=== PATIENT | female | born 1975 | race Caucasian/White ===

== ENCOUNTER 2016-11-14 15:51 | Emergency (ER) | payer MEDICAID ==
--- NOTE | 2016-11-14 16:19 | ER Document Report ---
ED Medical Screen (RME) - General Stated Complaint: BACK AND SIDE PAIN Time seen by provider: 16:17 Mode of Arrival: Ambulatory Information source: Patient Notes: 40-year-old female complaining of constant right thoracic mid axillary line pain that radiates to the right lower thoracic back for 3 days, worse when she lays down on her left side and takes a deep breath, feels short of breath.. She has a cough. No fever. No history of PE. TRAVEL OUTSIDE OF THE [place] IN LAST 30 DAYS: No - Related Data Allergies/Adverse Reactions: No Known Allergies Allergy (Verified 11/14/16 16:21) Past Medical History Pulmonary Medical History: Reports: Hx Bronchitis, Hx Pneumonia Denies: Hx Asthma Neurological Medical History: Reports: Hx Migraine GI Medical History: Reports: Hx Gastroesophageal Reflux Disease Past Surgical History: Reports: Hx Gynecologic Surgery - tubal ligation, Hx Tubal Ligation - Immunizations Immunizations up to date: No Hx Diphtheria, Pertussis, Tetanus Vaccination: No
[2016-11-14 17:12] LABS: ABSOLUTE BASOPHILS # (AUTO) 0.1 10^3/uL (0.0-0.2); ABSOLUTE EOSINOPHILS # (AUTO) 0.3 10^3/uL (0.0-0.6); ABSOLUTE LYMPHOCYTES (AUTO) 3.7 10^3/uL (0.5-4.7); ABSOLUTE MONOCYTES (AUTO) 0.6 10^3/uL (0.1-1.4); BASOPHILS % (AUTO) 0.8 % (0-2); EOSINOPHILS % (AUTO) 2.3 % (0-6); HEMOGLOBIN 12.4 g/dL (12.0-15.5); HGB HCT DIFFERENCE -0.8; LYMPHOCYTES % (AUTO) 29.1 % (13-45); MEAN CORPUSCULAR HEMOGLOBIN 28.9 pg (27.0-33.4); MEAN CORPUSCULAR HGB CONC 32.6 g/dL (32.0-36.0); MEAN CORPUSCULAR VOLUME 89 fl (80-97); MONOCYTES % (AUTO) 4.9 % (3-13); RED BLOOD COUNT 4.29 10^6/uL (3.72-5.28); RED CELL DISTRIBUTION WIDTH 13.8 % (11.5-14.0); SEGMENTED NEUTROPHILS % (AUTO) 62.9 % (42-78); WHITE BLOOD COUNT 12.8 10^3/uL (4.0-10.5)
[2016-11-14 17:36] LABS: ALANINE AMINOTRANSFERASE 26 U/L (9-52); ALBUMIN 3.9 g/dL (3.5-5.0); ALKALINE PHOSPHATASE 118 U/L (38-126); ANION GAP 15 (5-19); ASPARTATE AMINO TRANSFERASE 23 U/L (14-36); BILIRUBIN,TOTAL 0.4 mg/dL (0.2-1.3); BLOOD UREA NITROGEN 10 mg/dL (7-20); CALCIUM 9.5 mg/dL (8.4-10.2); CARBON DIOXIDE 24 mmol/L (22-30); CHLORIDE 99 mmol/L (98-107); CREATININE RESULT 0.79 mg/dL (0.52-1.25); GLUCOSE 280 mg/dL (75-110); POTASSIUM 4.3 mmol/L (3.6-5.0); SODIUM 137.7 mmol/L (137-145); TOTAL PROTEIN 7.6 g/dL (6.3-8.2)
[2016-11-14] MEDS ORDERED: KETOROLAC TROMETHAMINE INJ/PF 30 MG/1 ML SDV IV ONE (18:28)
[2016-11-14] MEDS ORDERED: LIDOCAINE 5% (700 MG) TRANSDERMAL ADH..PATCH TP ONE (18:28)
--- NOTE | 2016-11-14 18:30 | ER Document Report ---
ED General - General Chief Complaint: Back Pain Stated Complaint: BACK AND SIDE PAIN Mode of Arrival: Ambulatory Notes: Patient is a 40-year-old female without significant past medical history who presents with 3 days of pleuritic right chest wall pain. Describes the pain as a constant sharp pain that is worsened by taking a deep breath. Nothing improves the pain. Denies a history of similar symptoms in the past. No history of DVT or pulmonary embolus. She does not use any supplemental estrogen. She does smoke. She denies any distinct chest pain, vomiting, or diaphoresis. No cough or sputum production. She has not had a fever. Denies any focal abdominal pain. She is not seen her primary care physician regarding today's concerns. TRAVEL OUTSIDE OF THE [place] IN LAST 30 DAYS: No - Related Data Allergies/Adverse Reactions: No Known Allergies Allergy (Verified 11/14/16 16:21) Past Medical History - General Information source: Patient - Social History Smoking Status: Current Every Day Smoker Frequency of alcohol use: Social Drug Abuse: None Lives with: Spouse/Significant other Family History: Arthritis, CVA, DM, Hyperlipidemia, Hypertension, Malignancy, Thyroid Disfunction Pulmonary Medical History: Reports: Hx Bronchitis, Hx Pneumonia Denies: Hx Asthma Neurological Medical History: Reports: Hx Migraine Renal/ Medical History: Denies: Hx Peritoneal Dialysis GI Medical History: Reports: Hx Gastroesophageal Reflux Disease Past Surgical History: Reports: Hx Gynecologic Surgery - tubal ligation, Hx Tubal Ligation - Immunizations Immunizations up to date: No Hx Diphtheria, Pertussis, Tetanus Vaccination: No Review of Systems - Review of Systems Notes: Constitutional: Negative for fever. HENT: Negative for sore throat. Eyes: Negative for visual changes. Cardiovascular: Positive for right pleuritic pain Respiratory: Positive for shortness of breath. Gastrointestinal: Negative for abdominal pain, vomiting or diarrhea. Genitourinary: Negative for dysuria. Musculoskeletal: Negative for back pain. Skin: Negative for rash. Neurological: Negative for headaches, weakness or numbness. 10 point ROS negative except as marked above and in HPI. Physical Exam - Vital signs Vitals: Temp Pulse Resp BP Pulse Ox 98.3 F 77 18 133/85 H 98 11/14/16 21:52 11/14/16 21:52 11/14/16 21:52 11/14/16 21:52 11/14/16 21:52 Interpretation: Normal Notes: PHYSICAL EXAMINATION: GENERAL: Well-appearing, well-nourished and in no acute distress. HEAD: Atraumatic, normocephalic. EYES: Pupils equal round and reactive to light, extraocular movements intact, sclera anicteric, conjunctiva are normal. ENT: nares patent, oropharynx clear without exudates. Moist mucous membranes. NECK: Normal range of motion, supple without lymphadenopathy LUNGS: Breath sounds clear to auscultation bilaterally and equal. No wheezes rales or rhonchi. HEART: Regular rate and rhythm without murmurs ABDOMEN: Soft, nontender, normoactive bowel sounds. No guarding, no rebound. No masses appreciated. EXTREMITIES: Normal range of motion, no pitting or edema. No cyanosis. NEUROLOGICAL: No focal neurological deficits. Moves all extremities spontaneously and on command. PSYCH: Normal mood, normal affect. SKIN: Warm, Dry, normal turgor, no rashes or lesions noted. Course - Re-evaluation Re-evalutation: 11/14/16 18:28 Patient presents with RUQ and R costophrenic angle pain for the past 3 days. Patient does give a history consistent with pleuritic pain. She has no immediate risk factors for a pulmonary embolus and although she is PERC criteria negative, my clinical suspicion is higher than 15% pretest probability so I will proceed with a d-dimer assay to further exclude this diagnosis. Likewise, patient does have some focal right upper quadrant tenderness without rebound or guarding. Will evaluate with a right upper quadrant ultrasound for acute cholecystitis or symptomatic cholelithiasis. Alternative benign diagnoses include possible pleurodynia. Chest x-ray is negative for pneumonia or pneumothorax. I do not suspect an acute cardiac etiology based on history. 11/14/16 21:23 Right upper quadrant ultrasound shows cholelithiasis without evidence of acute cholecystitis. D-dimer is negative. Patient's pain is improved at this time. Vitals remained within normal limits.At this time will discharge with return precautions and follow-up recommendations. Verbal discharge instructions given a the bedside and opportunity for questions given. Medication warnings reviewed. Patient is in agreement with this plan and has verbalized understanding of return precautions and the need for primary care follow-up in the next 24-72 hours. - Vital Signs Vital signs: Temp Pulse Resp BP Pulse Ox 98.3 F 77 18 133/85 H 98 11/14/16 21:52 11/14/16 21:52 11/14/16 21:52 11/14/16 21:52 11/14/16 21:52 - Laboratory Result Diagrams: 11/14/16 16:55 11/14/16 16:55 Laboratory results interpreted by me: 11/14/16 11/14/16 16:55 16:55 WBC 12.8 H Glucose 280 H - Diagnostic Test Radiology reviewed: Image reviewed, Reports reviewed Radiology results interpreted by me: 11/15/16 03:17 Chest x-ray: No acute infiltrate Discharge - Discharge Clinical Impression: Pleurodynia Cholelithiasis Qualifiers: Cholelithiasis location: gallbladder Cholecystitis presence: without cholecystitis Biliary obstruction: without biliary obstruction Qualified Code(s) : K80.20 - Calculus of gallbladder without cholecystitis without obstruction Condition: Good Disposition: HOME, SELF-CARE Additional Instructions: Your labs do not show any evidence of blood clot in your lung. Your ultrasound shows stones in the gallbladder but no evidence of they are inflamed are causing your pain. The pain is likely related to inflammation of the lining that surrounds your lungs. Your chest xray did not show any evidence of a pneumonia. You were given a dose of steroids here to help calm the inflammation in this area. Please follow-up with your primary care physician at your earliest ability. Return if you develop increased shortness of breath, worsening pain, begin coughing blood, pass out, or have any other symptoms that are concerning to you. Referrals: ROBER BOSS MD [Primary Care Provider] - Follow up in 3-5 days
[2016-11-14] MEDS ORDERED: DEXAMETHASONE SOD PHOS INJ 10 MG/1 ML VIAL IV ONE (21:21)
[2016-11-14 21:56] VITALS: BP 133/85
== END 2016-11-14 22:13 | disposition home or self-care (01) ==
LOC: ER 15:51
DX: R07.81 Pleurodynia (principal); K80.20 Calculus of gallbladder without cholecystitis without obstruction; M54.9 Dorsalgia, unspecified; F17.200 Nicotine dependence, unspecified, uncomplicated; Z98.51 Tubal ligation status
CPT/HCPCS: 99284; 96374; 96375; 36415; 85025; 80053; 85379; 71020; 76705; J1885; J3490; J1100

== ENCOUNTER 2016-11-18 08:03 | Emergency (ER) | payer MEDICAID ==
[2016-11-18 09:56] LABS: ABSOLUTE BASOPHILS # (AUTO) 0.2 10^3/uL (0.0-0.2); ABSOLUTE EOSINOPHILS # (AUTO) 0.3 10^3/uL (0.0-0.6); ABSOLUTE MONOCYTES (AUTO) 0.6 10^3/uL (0.1-1.4); ABSOLUTE NEUT (AUTO) 8.6 10^3/uL (1.7-8.2); BASOPHILS % (AUTO) 1.3 % (0-2); EOSINOPHILS % (AUTO) 2.6 % (0-6); HEMATOCRIT 40.6 % (36.0-47.0); HEMOGLOBIN 13.1 g/dL (12.0-15.5); HGB HCT DIFFERENCE -1.3; MEAN CORPUSCULAR HEMOGLOBIN 28.2 pg (27.0-33.4); MEAN CORPUSCULAR HGB CONC 32.2 g/dL (32.0-36.0); MEAN CORPUSCULAR VOLUME 88 fl (80-97); MONOCYTES % (AUTO) 4.4 % (3-13); RED BLOOD COUNT 4.63 10^6/uL (3.72-5.28); RED CELL DISTRIBUTION WIDTH 14.2 % (11.5-14.0); SEGMENTED NEUTROPHILS % (AUTO) 62.7 % (42-78); WHITE BLOOD COUNT 13.6 10^3/uL (4.0-10.5)
[2016-11-18 09:58] LABS: APPEARANCE,URINE CLEAR; BILIRUBIN,URINE NEGATIVE (NEGATIVE); GLUCOSE, URINE NEGATIVE (NEGATIVE); KETONES,URINE NEGATIVE (NEGATIVE); LEUKOCYTE ESTERASE,URINE NEGATIVE (NEGATIVE); NITRITE,URINE NEGATIVE (NEGATIVE); PROTEIN,URINE NEGATIVE (NEGATIVE); URINE SPECIFIC GRAVITY 1.001; UROBILINOGEN,URINE NEGATIVE mg/dL (<2.0)
--- NOTE | 2016-11-18 11:05 | ER Document Report ---
[id number] Mode of Arrival: Ambulatory Information source: Patient Notes: 40-year-old female presents with complaints of right upper quadrant abdominal pain patient denies any fevers or chills admits to nausea patient was seen here previously noted to have gallstone, notes pain worsens after eating. TRAVEL OUTSIDE OF THE [place] IN LAST 30 DAYS: No - HPI Onset: Just prior to arrival Onset/Duration: Sudden Quality of pain: Sharp Severity: Mild Pain Level: 1 Associated symptoms: Nausea Exacerbated by: Denies Relieved by: Denies Similar symptoms previously: Yes Recently seen / treated by doctor: Yes - Related Data Allergies/Adverse Reactions: No Known Allergies Allergy (Verified 11/18/16 08:07) Past Medical History - Social History Smoking Status: Current Every Day Smoker Cigarette use (# per day): No Chew tobacco use (# tins/day): No Smoking Education Provided: No Frequency of alcohol use: None Drug Abuse: None Family History: Arthritis, CVA, DM, Hyperlipidemia, Hypertension, Malignancy, Thyroid Disfunction Patient has suicidal ideation: No Patient has homicidal ideation: No Pulmonary Medical History: Reports: Hx Bronchitis, Hx Pneumonia Denies: Hx Asthma Neurological Medical History: Reports: Hx Migraine Renal/ Medical History: Denies: Hx Peritoneal Dialysis GI Medical History: Reports: Hx Gastroesophageal Reflux Disease Past Surgical History: Reports: Hx Gynecologic Surgery - tubal ligation, Hx Tubal Ligation - Immunizations Immunizations up to date: No Hx Diphtheria, Pertussis, Tetanus Vaccination: No Review of Systems - Review of Systems Notes: REVIEW OF SYSTEMS: CONSTITUTIONAL : Denies fever, chills, or sweats. Denies recent illness. EENT: Denies eye, ear, throat, or mouth pain or symptoms. Denies nasal or sinus congestion or discharge. Denies throat, tongue, or mouth swelling or difficulty swallowing. CARDIOVASCULAR: Denies chest pain. Denies palpitations or racing or irregular heart beat. Denies ankle edema. RESPIRATORY: Denies cough, cold, or chest congestion. Denies shortness of breath, difficulty breathing, or wheezing. GASTROINTESTINAL: Admits to abdominal pain nausea GENITOURINARY: Denies difficulty urinating, painful urination, burning, frequency, blood in urine, or discharge. FEMALE GENITOURINARY: Denies vaginal bleeding, heavy or abnormal periods, irregular periods. Denies vaginal discharge or odor. MUSCULOSKELETAL: Denies back or neck pain or stiffness. Denies joint pain or swelling. SKIN: Denies rash, lesions or sores. HEMATOLOGIC : Denies easy bruising or bleeding. LYMPHATIC: Denies swollen, enlarged glands. NEUROLOGICAL: Denies confusion or altered mental status. Denies passing out or loss of consciousness. Denies dizziness or lightheadedness. Denies headache. Denies weakness or paralysis or loss of use of either side. Denies problems with gait or speech. Denies sensory loss, numbness, or tingling. Denies seizures. PSYCHIATRIC: Denies anxiety or stress. Denies depression, suicidal ideation, or homicidal ideation. ALL OTHER SYSTEMS REVIEWED AND NEGATIVE. Dictation was performed using [employer] voice recognition software PHYSICAL EXAMINATION: GENERAL: Well-appearing, well-nourished and in no acute distress. HEAD: Atraumatic, normocephalic. EYES: Pupils equal round and reactive to light, extraocular movements intact, conjunctiva are normal. ENT: Nares patent, oropharynx clear without exudates. Moist mucous membranes. NECK: Normal range of motion, supple without lymphadenopathy LUNGS: Breath sounds clear to auscultation bilaterally and equal. No wheezes rales or rhonchi. HEART: Regular rate and rhythm without murmurs ABDOMEN: Soft, minimally tender in the right upper quadrant no rebound or guarding no positive Herndon sign Female : deferred Musculoskeletal: Normal range of motion, no pitting or edema. No cyanosis. NEUROLOGICAL: Cranial nerves grossly intact. Normal speech, normal gait. Normal sensory, motor exams PSYCH: Normal mood, normal affect. SKIN: Warm, Dry, normal turgor, no rashes or lesions noted. Physical Exam - Vital signs Vitals: Temp Pulse Resp BP Pulse Ox 97.5 F 94 18 144/94 H 100 11/18/16 08:08 11/18/16 08:08 11/18/16 08:08 11/18/16 08:08 11/18/16 08:08 Course - Re-evaluation Re-evalutation: 11/18/16 17:36 Patient was sent for an ultrasound, I did speak with the surgeon regarding this patient as well. Given the ultrasound noted no acute cholecystitis there is a mild white count elevation I did speak to the patient in regards to outpatient versus inpatient surgery, they wish to go home and try diet changes initially After performing a Medical Screening Examination, I estimate there is LOW risk for ACUTE APPENDICITIS, BOWEL OBSTRUCTION, ACUTE CHOLECYSTITIS, PERFORATED DIVERTICULITIS, INCARCERATED HERNIA, PANCREATITIS, PELVIC INFLAMMATORY DISEASE, PERFORATED ULCER, ECTOPIC , or TUBO-OVARIAN ABSCESS, thus I consider the discharge disposition reasonable. Also, there is no evidence or peritonitis , sepsis, or toxicity. The patient and I have discussed the diagnosis and risks , and we agree with discharging home with close follow-up with the understanding that symptoms and presentations can change. We also discussed returning to the Emergency Department immediately if new or worsening symptoms occur. We have discussed the symptoms which are most concerning (e.g., bloody stool, fever, changing or worsening pain, vomiting) that necessitate immediate return. - Vital Signs Vital signs: Temp Pulse Resp BP Pulse Ox 97.4 F 90 16 140/90 H 100 11/18/16 12:46 11/18/16 12:46 11/18/16 12:46 11/18/16 12:46 11/18/16 12:46 - Laboratory Result Diagrams: 11/18/16 09:35 11/18/16 11:15 Laboratory results interpreted by me: 11/18/16 11/18/16 09:35 11:15 WBC 13.6 H RDW 14.2 H Absolute Neutrophils 8.6 H Glucose 140 H - Diagnostic Test Radiology reviewed: Image reviewed, Reports reviewed Discharge - Discharge Clinical Impression: Cholelithiasis Qualifiers: Cholelithiasis location: gallbladder Cholecystitis presence: without cholecystitis Biliary obstruction: without biliary obstruction Qualified Code(s) : K80.20 - Calculus of gallbladder without cholecystitis without obstruction Abdominal pain Qualifiers: Abdominal location: right upper quadrant Qualified Code(s): R10.11 - Right upper quadrant pain Condition: Stable Disposition: HOME, SELF-CARE Instructions: Abdominal Pain ([facility]), Gallbladder Disease ([facility]) Prescriptions: Ondansetron HCl [Zofran 8 mg Tablet] 8 mg PO Q8HP PRN #30 tablet PRN Reason: Hydrocodone/Acetaminophen [Grapevine 5-325 mg Tablet] 1 tab PO Q6 #10 tablet Referrals: ESTEBAN OSBORNE MD [ACTIVE STAFF] - Follow up as needed
[2016-11-18 11:45] LABS: ALANINE AMINOTRANSFERASE 26 U/L (9-52); ALBUMIN 3.8 g/dL (3.5-5.0); ALKALINE PHOSPHATASE 102 U/L (38-126); ANION GAP 9 (5-19); ASPARTATE AMINO TRANSFERASE 20 U/L (14-36); BILIRUBIN,TOTAL 0.6 mg/dL (0.2-1.3); BLOOD UREA NITROGEN 10 mg/dL (7-20); CALCIUM 9.5 mg/dL (8.4-10.2); CARBON DIOXIDE 28 mmol/L (22-30); CHLORIDE 101 mmol/L (98-107); GLUCOSE 140 mg/dL (75-110); LIPASE 36.1 U/L (23-300); POTASSIUM 4.6 mmol/L (3.6-5.0); SODIUM 138.3 mmol/L (137-145); TOTAL PROTEIN 7.3 g/dL (6.3-8.2)
[2016-11-18 12:48] VITALS: BP 140/90
== END 2016-11-18 12:48 | disposition home or self-care (01) ==
LOC: ER 08:03
DX: K80.20 Calculus of gallbladder without cholecystitis without obstruction (principal); R10.11 Right upper quadrant pain; R11.0 Nausea; D72.829 Elevated white blood cell count, unspecified; F17.200 Nicotine dependence, unspecified, uncomplicated; Z87.19 Personal history of other diseases of the digestive system; Z98.51 Tubal ligation status
CPT/HCPCS: 36415; 76705; 80053; 81001; 81025; 83690; 85025; 99284

== ENCOUNTER 2017-01-06 05:34 | Day surgery (SDC) | payer MEDICAID ==
[2016-12-30 10:35] LABS: HEMATOCRIT 37.4 % (36.0-47.0); HEMOGLOBIN 12.4 g/dL (12.0-15.5); HGB HCT DIFFERENCE -0.2; MEAN CORPUSCULAR HEMOGLOBIN 28.6 pg (27.0-33.4); MEAN CORPUSCULAR HGB CONC 33.2 g/dL (32.0-36.0); MEAN CORPUSCULAR VOLUME 86 fl (80-97); RED BLOOD COUNT 4.35 10^6/uL (3.72-5.28); RED CELL DISTRIBUTION WIDTH 14.3 % (11.5-14.0); WHITE BLOOD COUNT 12.1 10^3/uL (4.0-10.5)
[2016-12-30 11:03] LABS: ALANINE AMINOTRANSFERASE 31 U/L (9-52); ALBUMIN 4.1 g/dL (3.5-5.0); ALKALINE PHOSPHATASE 118 U/L (38-126); ANION GAP 14 (5-19); ASPARTATE AMINO TRANSFERASE 20 U/L (14-36); BILIRUBIN,TOTAL 0.4 mg/dL (0.2-1.3); BLOOD UREA NITROGEN 8 mg/dL (7-20); CALCIUM 9.5 mg/dL (8.4-10.2); CARBON DIOXIDE 25 mmol/L (22-30); CHLORIDE 98 mmol/L (98-107); GLUCOSE 146 mg/dL (75-110); POTASSIUM 4.7 mmol/L (3.6-5.0); TOTAL PROTEIN 7.6 g/dL (6.3-8.2)
[2016-12-30 11:05] LABS: AMYLASE < 30 U/L (30-110)
[~2017-01-06 05:34] MED LIST: ACETAMINOPHEN 325 MG TABLET PO PRN; CEFAZOLIN 1 GM/D5W RTU 1 GM/50 ML RTUPB IV PRN; LIDOCAINE 0.5% INJ-PF (5 MG/ML) 50 ML SDV INJ PRN; RINGERS SOLUTION,LACTATED 1,000 ML IV PRN
[2017-01-06] MEDS ORDERED: ALBUTEROL SULFATE 0.083% NEB 2.5 MG/3 ML AMPUL NEB ONE (06:17)
[2017-01-06] MEDS ORDERED: BUPIVACAINE HCL 0.25 % INJ/PF (2.5 MG/1 ML) 30 ML VIAL ONE (06:32)
[2017-01-06] MEDS ORDERED: FAMOTIDINE INJ/PF 20 MG/2 ML SDV IV ONE (07:06)
[2017-01-06] MEDS ORDERED: SCOPOLAMINE HYDROBROMIDE 1.5 MG PATCH.TD72 ONE (07:09)
[2017-01-06] MEDS ORDERED: FENTANYL CITRATE INJ/PF 100 MCG/2 ML AMPUL ONE ×2 (07:12)
[2017-01-06] MEDS ORDERED: LIDOCAINE 2% INJ-PF (20 MG/ML) 10 ML AMPUL ONE (07:12)
[2017-01-06] MEDS ORDERED: MIDAZOLAM 2 MG/2 ML INJ ONE (07:13)
[2017-01-06] MEDS ORDERED: PROPOFOL INJ 200 MG/20 ML VIAL IV ONE (07:13)
[2017-01-06] MEDS ORDERED: MORPHINE SULFATE 10 MG/ML INJ ONE (07:13)
[2017-01-06] MEDS ORDERED: FENTANYL CITRATE INJ/PF 100 MCG/2 ML AMPUL IV PRN (08:10)
[2017-01-06] MEDS ORDERED: MORPHINE SULFATE 10 MG/ML INJ IV PRN ×2 (08:10→09:04)
[2017-01-06] MEDS ORDERED: ONDANSETRON HCL INJ/PF 4 MG/2 ML SDV IV PRN (09:04)
[2017-01-06] MEDS ORDERED: OXYCODONE-ACETAMINOPHEN 5-325 MG TABLET PO PRN (09:04)
--- NOTE | 2017-01-06 09:04 | Operative Report ---
Operative Report DATE OF SURGERY: 01/06/17 PREOPERATIVE DIAGNOSIS: Symptomatic cholelithiasis cholecystitis. POSTOPERATIVE DIAGNOSIS: Same OPERATION: 1. Laparoscopic cholecystectomy SURGEON: ESTEBAN NEELY CARE GIVER: PATRICIO BANSAL ANESTHESIA: GA TISSUE REMOVED OR ALTERED: 1 gallbladder with contents COMPLICATIONS: None ESTIMATED BLOOD LOSS: scant INTRAOPERATIVE FINDINGS: See below PROCEDURE: After obtaining informed consent, the patient was taken to the operating room. General Anesthesia was induced; the arms were extended, and the abdomen was exposed, and prepped and draped in a sterile fashion. Instrumentation was set up for laparoscopic cholecystectomy. Surgical plan and surgical timeout were conducted. A vertical incision was made above the umbilicus, and a verres needle was inserted uneventfully into the peritoneal cavity. Pneumoperitoneum was established. The verres needle was removed and a 5 mm trocar was inserted and a 5 mm flexible laparoscope was inserted. Visualization of the peritoneal cavity confirmed safe uneventful entry. Under direct visualization 3 additional 5 mm ports were established, one in the subxiphoid position and second in the subcostal position. Visualization of the hepatobiliary was very difficult due to the patient's morbid obesity. Therefore placed a fourth retracting port for total of 5 total warts. This additional port allowed us to introduce fan retractor to hold the gastroduodenal tissue dorsally. The gallbladder down from the fundus using electrocautery. This was performed in a circumferential fashion with excellent visualization of the liver-gallbladder plane. Eventually we came down to the dominant cystic artery which was slightly more lateral than local. It was clipped 2 times proximally 2 times distally and divided with electrocautery DISSECTOR. We then spent a fair amount of time dissecting the surrounding fat in a circumferential fashion away from the infundibulum of the gallbladder. This was very challenging despite the use of additional retractor. Eventually we got down to what felt was a safe neck of the gallbladder. Photos were taken. 4-year-old PDS Endoloops were placed on the gallbladder neck one proximally and one distally. Proximal loop secured the neck at the level of the cystic duct. Again this area was not meticulously dissected out because of the excessive amount of fatty tissue, and the short nature of the anatomic rupture must specifically the cystic duct. Once the loop was secured, the gallbladder was amputated at its neck. Graspers were repositioned and the gallbladder was removed uneventfully from the abdominal cavity through the super umbilical port site incision. The specimen was examined, then passed off to pathology for permanent analysis. We returned to the peritoneal cavity check for bleeding, and evidence of bile leak, and there was none. We Confirmed satisfactory placement of clips on cystic duct and cystic artery were secured . At this point we felt the operation was complete. The subcutaneous tissue was then anesthetized with quarter percent Marcaine Sponge and needle counts are correct. All ports removed under direct visualization pneumoperitoneum evacuated, and 5 mm port wounds closed with 3-0 Vicryl suture, benzoin and Steri-Strips. FAscial defect closed with was no spillage of stones.0 vicryl. The patient was extubated, and taken to the recovery room in stable condition. The physician captain assistant, Ms. Bansal, provided assistance during this case by: Assisting and port insertion, retracting tissue, instillation of local anesthesia and closure of skin incisions.
--- NOTE | 2017-01-06 09:08 | PDOC DISCHARGE SUMMARY ---
Discharge Summary (SDC) - Discharge Final Diagnosis: Symptomatic cholelithiasis cholecystitis Date of Surgery: 01/06/17 Discharge Date: 01/06/17 Condition: Good Treatment or Instructions: [facility] [address], [place] [address] Discharge Instructions: Laparoscopic Surgery 1. General Information: a. DO NOT DRIVE a car or operate dangerous machinery for 3-4 days or while taking narcotic pain pills. b. DO NOT consume alcohol, tranquilizers, sleeping medications or any non- prescribed medications for 24 hours unless approved by your doctor or as long as taking narcotic prescription medications. c. DO NOT make important decisions or sign any important papers for the first 24 hours after surgery. d. When discharged home the same day of surgery have a responsible person with you for the first night. 2. Activity Restrictions: 2 weeks. a. NO heavy lifting, straining abdominal muscles, bending over a lot, yard work, house work, or sports for [address] for 3-4 days or while taking percocet. c. It is fine to go for walks, up and down steps, ride in a car. d. Elevate your head when sleeping/resting. 3. Treatment: a. You may shower 24 hours after surgery, no baths or swimming for 2 weeks. Remove band-aids or dressings before shower but leave paper strips (steri-strips ) on the skin to fall off on their own. If still on at postoperative visit they will be removed then. b. Drainage of fluid or blood is not unusual from an incision. If occurs, you can clean with peroxide and cotton ball daily and cover with dry gauze until the wound seals. c. If a lot of bleeding occurs, you can hold pressure with a gauze or cloth over the site for 10 minutes and it will usually stop. If bleeding continues you will need to call for possible evaluation in office or emergency room. 4. Medications: a. Percocet may be taken for pain as needed, one or two tablets every 4-6 hours. Stop the narcotic when able since you cannot take it and drive, and they cause constipation. You may switch to plain Tylenol, Advil or Aleve as you transition from the narcotic. Many adults find good pain relief with Advil 600- 800 mg three times a day with meals. This can cause indigestion, ulcers, and kidney problems with long-term use. b. You should resume all normal medications unless a change is specified by your doctors. c. Begin with clear liquids and may progress to your normal diet if not nauseated. No high fat, high protein foods the day of surgery. Normal diet 6. The following may occur after laparoscopic surgery: a. Shoulder or upper back ache from retained gas that should resolve in 1-2 days b. Soreness and bruising at incision sites will resolve with time. c. Scrotal swelling (labia in women) and bruising is often seen after hernia surgery. d. Sore throat e. Fatigue may last days to weeks. f. Difficulty urinating may occur and may need to come into emergency room for urinary catheter placement. 7. Notify Physician If: a. Worsening or pain not improved with pain medication b. Persistent nausea and vomiting c. Fever above 101 d. Persistent bleeding or swelling at operative site e. Unable to urinate and uncomfortable bladder 6-8 hours after surgery 8..Follow Up Care: a. Schedule a follow up appointment with your doctor for 2 weeks. In the event of any postoperative problems or questions or you may call the office during business hours or the On-Call physician evenings and weekends at [facility]. [facility] I understand the instructions for my postoperative care as described above and a copy has been given to me. Patient/Significant Other Witness Date Prescriptions: Oxycodone HCl/Acetaminophen [Percocet 5-325 mg Tablet] 1 tab PO ASDIR PRN #15 tab PRN Reason: Discharge Diet: As Tolerated Discharge Activity: Activity As Tolerated Home Care Assistance: None Needed Report the Following to Your Physician Immediately: Shortness of Breath, Increase in Pain, Fever over 101 Degrees
[2017-01-06] MEDS ORDERED: SUCCINYLCHOLINE CHLORIDE INJ 200 MG/10 ML VIAL ONE (11:03)
[2017-01-06] MEDS ORDERED: ONDANSETRON HCL INJ/PF 4 MG/2 ML SDV ONE (11:03)
[2017-01-06] MEDS ORDERED: DEXAMETHASONE SOD PHOSPHATE INJ 4 MG/1 ML VIAL ONE (11:03)
[2017-01-06] MEDS ORDERED: ROCURONIUM BROMIDE INJ 50 MG/5 ML VIAL IV ONE (11:03)
[2017-01-06] MEDS ORDERED: NEOSTIGMINE METHYLSULFATE 10 MG/10 ML VIAL ONE (11:03)
[2017-01-06] MEDS ORDERED: GLYCOPYRROLATE INJ 0.4 MG/2 ML VIAL ONE (11:03)
[2017-01-06 13:19] VITALS: BP 131/70
== END 2017-01-06 11:40 | disposition home or self-care (01) ==
LOC: OROUT 05:34
PROVIDERS: ATTEND Surgery
PROC: 0FT44ZZ Resection of Gallbladder, Percutaneous Endoscopic Approach (ICD-10-PCS; principal; 2017-01-06 07:30)
DX: K80.12 Calculus of gallbladder with acute and chronic cholecystitis without obstruction (principal); F17.210 Nicotine dependence, cigarettes, uncomplicated; E66.9 Obesity, unspecified; Z88.8 Allergy status to other drugs, medicaments and biological substances; Z68.42 Body mass index [BMI] 45.0-49.9, adult
CPT/HCPCS: 36415; 82150; 85027; 80076; 80048; 88304 ×2; 94640; 47562; J2250; J0690; J3490 ×4; J1100; J3010; J2270; J0330; J2405; S0020; J2704; S0028; 790

== ENCOUNTER 2017-09-23 15:40 | Emergency (ER) | payer SELFPAY ==
[2017-09-23] MEDS ORDERED: ACETAMINOPHEN 325 MG TABLET PO ONE (16:25)
[2017-09-23] MEDS ORDERED: IPRATROPIUM/ALBUTEROL 0.5-2.5 MG/3 ML AMPUL NEB ONE (16:25)
[2017-09-23] MEDS ORDERED: PREDNISONE 20 MG TABLET PO ONE (16:25)
--- NOTE | 2017-09-23 16:36 | ER Document Report ---
HPI - HPI Patient complains to provider of: cough Onset: Other - 1.5 wks Onset/Duration: Persistent Quality of pain: Achy Pain Level: 2 Context: Patient presents with productive cough for the past 10 days. Patient reports headache only with coughing. Patient denies any nausea, vomiting or diarrhea. Patient does complain of sore throat. Associated Symptoms: Nonproductive cough, Fever, Headache Exacerbated by: Denies Relieved by: Denies Similar symptoms previously: Yes Recently seen / treated by doctor: No - ROS ROS below otherwise negative: Yes Systems Reviewed and Negative: Yes All other systems reviewed and negative - CONSTITUTIONAL Constitutional: REPORTS: Fever - EENT EENT: REPORTS: Sore Throat - CARDIOVASCULAR Cardiovascular: DENIES: Chest pain - RESPIRATORY Respiratory: REPORTS: Coughing - GASTROINTESTINAL Gastrointestinal: DENIES: Patient vomiting - REPRODUCTIVE Reproductive: DENIES: : - DERM Skin Color: Normal Skin Problems: None Past Medical History - General Information source: Patient - Social History Smoking Status: Current Every Day Smoker Frequency of alcohol use: None Drug Abuse: None Occupation: none Family History: Arthritis, CVA, DM, Hyperlipidemia, Hypertension, Malignancy, Thyroid Disfunction - Past Medical History Cardiac Medical History: Denies: Hx Coronary Artery Disease, Hx Heart Attack, Hx Hypertension Pulmonary Medical History: Reports: Hx Bronchitis, Hx Pneumonia Denies: Hx Asthma, Hx COPD Neurological Medical History: Reports: Hx Migraine. Denies: Hx Cerebrovascular Accident, Hx Seizures Renal/ Medical History: Denies: Hx Peritoneal Dialysis GI Medical History: Reports: Hx Gastroesophageal Reflux Disease Musculoskeltal Medical History: Denies Hx Arthritis Past Surgical History: Reports: Hx Gynecologic Surgery - tubal ligation, Hx Tubal Ligation - Immunizations Immunizations up to date: No Hx Diphtheria, Pertussis, Tetanus Vaccination: Yes Vertical Provider Document - CONSTITUTIONAL Agree With Documented VS: Yes Exam Limitations: No Limitations General Appearance: WD/WN, No Apparent Distress - INFECTION CONTROL TRAVEL OUTSIDE OF THE [place] IN LAST 30 DAYS: No - HEENT HEENT: Atraumatic, Normocephalic, Pharyngeal Tenderness. negative: Pharyngeal Exudate, Pharyngeal Erythema, Tympanic Membrane Red, Tympanic Membrane Bulging Notes: clear rhinorrhea - NECK Neck: Normal Inspection, Supple. negative: Lymphadenopathy-Left, Lymphadenopathy-Right - RESPIRATORY Respiratory: No Respiratory Distress, Chest Non-Tender, Wheezing O2 Sat by Pulse Oximetry: 99 - CARDIOVASCULAR Cardiovascular: Regular Rate, Regular Rhythm - BACK Back: Normal Inspection - MUSCULOSKELETAL/EXTREMETIES Musculoskeletal/Extremeties: KENNETH MONTELONGO - NEURO Level of Consciousness: Awake, Alert, Appropriate - DERM Integumentary: Warm, Dry, No Rash Course - Re-evaluation Re-evalutation: 09/23/17 The patient has been informed that they may have pre-hypertension or hypertension based on a blood pressure reading in the emergency department. I recommend that patient call the primary care provider listed on their discharge instructions or a physician of their choice by this week to arrange follow-up for further evaluation of possible pre-hypertension or hypertension. Respirations unlabored, no concern for PE or pneumonia at this time. Patient denies any history of asthma. Patient encouraged to stop smoking. - Vital Signs Vital signs: Temp Pulse Resp BP Pulse Ox 98.4 F 80 20 146/85 H 99 09/23/17 15:45 09/23/17 15:45 09/23/17 15:45 09/23/17 15:45 09/23/17 15:45 Discharge - Discharge Clinical Impression: Elevated blood pressure reading, Bronchospasm Upper respiratory infection Qualifiers: URI type: unspecified URI Qualified Code(s): J06.9 - Acute upper respiratory infection, unspecified Condition: Stable Disposition: HOME, SELF-CARE Additional Instructions: Return immediately for any new or worsening symptoms Followup with your primary care provider, call tomorrow to make a followup appointment UPPER RESPIRATORY ILLNESS: You have a viral infection of the respiratory passages -- a "cold." This common infection causes nasal congestion, drainage, and often sore throat and cough. It is highly contagious. The disease usually lasts about 10 to 14 days. There is no "cure" for the viral infection -- it must run its course. If there is a complication, such as bacterial infection in the nose, sinuses, middle ear, or bronchial tubes, antibiotics may be required. The antibiotics won't affect the virus. Drink plenty of fluids. A humidifier may help. An expectorant medication or decongestant may make you more comfortable. Use acetaminophen or ibuprofen for fever or aches. See the doctor if fever persists over two days, if there is any significant worsening of your symptoms, or if you simply fail to improve as expected. BRONCHOSPASM: You have tightness in the bronchial tubes, called bronchospasm. This often occurs with bronchial infections. Allergies, inhaled chemicals, and polluted or cold air can also provoke bronchospasm. It's more likely in patients with asthma in the family. Emergency treatment of bronchospasm may include adrenaline shots or bronchodilator aerosol. You may feel lightheaded and have a rapid pulse for an hour or two. Rest and get plenty of fluids. At home, we'll treat you with a bronchodilator inhaler. Antibiotics and corticosteroids may be required for some patients. Until you recover, avoid chemical fumes, dusts, pollens, and exercising in very cold or dry air. If you smoke, stop now!! If you develop a fever, increased wheezing, chest pain, or severe shortness of breath, you should contact the doctor immediately. INHALED BRONCHODILATORS: You have received a treatment of and/or prescription for an inhaled bronchodilator -- a medication which stimulates the airways in the lung to dilate. This improves the flow of air in asthma, bronchitis, and emphysema. These medicines have some similarity to adrenaline, and can cause similar side effects: shakiness, racing heart, and a sense of nervousness. These side effects decrease with time. Contact your doctor if these side effects are severe. Do not over-use the medicine. Too-frequent use of the inhaler may make it ineffective. Call your doctor if the inhaler is not controlling your symptoms at the prescribed doses. STEROID MEDICATION: You have been given an injection of or oral medicine of the cortisone/ steroid class. This medication is used to control inflammation or allergy. Shantanu t is usually only given for a short period of time, until the acute process subsides. There are usually no side effects from short-term use of cortisone-like medications. Some persons feel an increased sense of well-being and are not sleepy at bedtime. Long-term use of cortisone medications is best avoided, unless required for a severe condition. If your condition does not remit, or relapses after the course of corticosteroid medication, you should consult your physician. USE OF ACETAMINOPHEN (Tylenol): Acetaminophen may be taken for pain relief or fever control. It's much safer than aspirin, offering a wider range of "safe" dosages. It is safe during . Some brand names are Tylenol, Panadol, Datril, Anacin 3, Tempra, and Liquiprin. Acetaminophen can be repeated every four hours. The following are maximum recommended dosages: >89 pounds or adults 650 mg to 900 mg Acetaminophen can be repeated every four hours. Maximum dose not to exceed 4000 mg a day. SMOKING: If you smoke, you should stop smoking. The tar and chemicals in cigarette smoke are harmful. Smoking has been shown to cause: emphysema chronic bronchitis lung cancer mouth and throat cancer stomach and pancreas cancer premature aging defects In addition, smoking increases ear and lung infections in children of smokers. FOLLOW-UP CARE: If you have been referred to a physician for follow-up care, call the physician s office for an appointment as you were instructed or within the next two days. If you experience worsening or a significant change in your symptoms, notify the physician immediately or return to the Emergency Department at any time for re-evaluation. Prescriptions: Albuterol Sulfate [Ventolin Hfa] 2 puff IH Q4HP PRN #17 gm PRN Reason: Benzonatate [Tessalon Perle 100 mg Capsule] 100 mg PO Q8HP PRN #20 cap PRN Reason: Prednisone [Deltasone 10 mg Tablet] 10 mg PO ASDIR PRN #21 tablet PRN Reason: Referrals: [facility] [Provider Group] - Follow up as needed
[2017-09-23 18:09] VITALS: BP 140/87
== END 2017-09-23 18:05 | disposition home or self-care (01) ==
LOC: ER 15:40
DX: J06.9 Acute upper respiratory infection, unspecified (principal); J98.01 Acute bronchospasm; R03.0 Elevated blood-pressure reading, without diagnosis of hypertension; R05 Cough; R51 Headache; J02.9 Acute pharyngitis, unspecified; F17.200 Nicotine dependence, unspecified, uncomplicated
CPT/HCPCS: 94640; 99283; J7512; J7620

== ENCOUNTER 2017-11-19 08:35 | Emergency (ER) | payer SELFPAY ==
--- NOTE | 2017-11-19 09:41 | RADIOLOGY REPORT (SQ) ---
EXAM DESCRIPTION: CHEST PA/LAT COMPLETED DATE/TIME: 11/19/2017 9:31 am REASON FOR STUDY: LLL pain, cough COMPARISON: 11/14/2016. EXAM PARAMETERS: NUMBER OF VIEWS: two views TECHNIQUE: Digital Frontal and Lateral radiographic views of the chest acquired. RADIATION DOSE: NA LIMITATIONS: none FINDINGS: LUNGS AND PLEURA: No opacities, masses or pneumothorax. No pleural effusion. MEDIASTINUM AND HILAR STRUCTURES: No masses or contour abnormalities. HEART AND VASCULAR STRUCTURES: Heart normal size. No evidence for failure. BONES: No acute findings. HARDWARE: None in the chest. OTHER: No other significant finding. IMPRESSION: NO SIGNIFICANT RADIOGRAPHIC FINDING IN THE CHEST. TECHNICAL DOCUMENTATION: JOB ID: [id number] [employer]- All Rights Reserved
--- NOTE | 2017-11-19 09:48 | ER Document Report ---
ED General - General Chief Complaint: Rib Pain Stated Complaint: LEFT SIDE PAIN Time Seen by Provider: 11/19/17 08:55 Mode of Arrival: Ambulatory Information source: Patient Notes: 41-year-old female who has had a cough since Wednesday presents with complaints of left upper abdominal muscular pain when she coughs. Patient notes when she is not coughing it does not hurt. When he pushed on it it hurts on the muscle but not deep inside. She denies any fevers or chills denies any productivity to cough denies any shortness of breath. Patient denies any DVT or PE risk factors TRAVEL OUTSIDE OF THE [place] IN LAST 30 DAYS: No - HPI Onset: Last week Onset/Duration: Intermittent Quality of pain: Sharp Severity: Mild Pain Level: 1 Associated symptoms: Other Exacerbated by: Denies Relieved by: Denies Similar symptoms previously: No Recently seen / treated by doctor: No - Related Data Allergies/Adverse Reactions: orange juice Allergy (Verified 11/19/17 08:39) RASH, ITCHING Past Medical History - Social History Smoking Status: Current Every Day Smoker Cigarette use (# per day): Yes Chew tobacco use (# tins/day): No Smoking Education Provided: No Frequency of alcohol use: None Drug Abuse: None Family History: Arthritis, CVA, DM, Hyperlipidemia, Hypertension, Malignancy, Thyroid Disfunction Patient has suicidal ideation: No Patient has homicidal ideation: No - Past Medical History Cardiac Medical History: Denies: Hx Coronary Artery Disease, Hx Heart Attack, Hx Hypertension Pulmonary Medical History: Reports: Hx Bronchitis, Hx Pneumonia Denies: Hx Asthma, Hx COPD Neurological Medical History: Reports: Hx Migraine. Denies: Hx Cerebrovascular Accident, Hx Seizures Renal/ Medical History: Denies: Hx Peritoneal Dialysis GI Medical History: Reports: Hx Gastroesophageal Reflux Disease Musculoskeltal Medical History: Denies Hx Arthritis Past Surgical History: Reports: Hx Cholecystectomy, Hx Gynecologic Surgery - tubal ligation, Hx Tubal Ligation - Immunizations Immunizations up to date: No Hx Diphtheria, Pertussis, Tetanus Vaccination: Yes Review of Systems - Review of Systems Notes: REVIEW OF SYSTEMS: CONSTITUTIONAL : Denies fever, chills, or sweats. Denies recent illness. EENT: Denies eye, ear, throat, or mouth pain or symptoms. Denies nasal or sinus congestion or discharge. Denies throat, tongue, or mouth swelling or difficulty swallowing. CARDIOVASCULAR: Denies chest pain. Denies palpitations or racing or irregular heart beat. Denies ankle edema. RESPIRATORY: Nonproductive cough GASTROINTESTINAL: Admits to left upper quadrant abdominal pain GENITOURINARY: Denies difficulty urinating, painful urination, burning, frequency, blood in urine, or discharge. FEMALE GENITOURINARY: Denies vaginal bleeding, heavy or abnormal periods, irregular periods. Denies vaginal discharge or odor. MUSCULOSKELETAL: Denies back or neck pain or stiffness. Denies joint pain or swelling. SKIN: Denies rash, lesions or sores. HEMATOLOGIC : Denies easy bruising or bleeding. LYMPHATIC: Denies swollen, enlarged glands. NEUROLOGICAL: Denies confusion or altered mental status. Denies passing out or loss of consciousness. Denies dizziness or lightheadedness. Denies headache. Denies weakness or paralysis or loss of use of either side. Denies problems with gait or speech. Denies sensory loss, numbness, or tingling. Denies seizures. PSYCHIATRIC: Denies anxiety or stress. Denies depression, suicidal ideation, or homicidal ideation. ALL OTHER SYSTEMS REVIEWED AND NEGATIVE. PHYSICAL EXAMINATION: GENERAL: Well-appearing, well-nourished and in no acute distress. HEAD: Atraumatic, normocephalic. EYES: Pupils equal round and reactive to light, extraocular movements intact, conjunctiva are normal. ENT: Nares patent, oropharynx clear without exudates. Moist mucous membranes. NECK: Normal range of motion, supple without lymphadenopathy LUNGS: Breath sounds clear to auscultation bilaterally and equal. No wheezes rales or rhonchi. HEART: Regular rate and rhythm without murmurs ABDOMEN: Soft, tender left upper quadrant no rebound no guarding. . No masses appreciated. Female : deferred Musculoskeletal: Normal range of motion, no pitting or edema. No cyanosis. NEUROLOGICAL: Cranial nerves grossly intact. Normal speech, normal gait. Normal sensory, motor exams PSYCH: Normal mood, normal affect. SKIN: Warm, Dry, normal turgor, no rashes or lesions noted. Dictation was performed using [employer] recognition software Physical Exam - Vital signs Vitals: Temp Pulse Resp BP Pulse Ox 98.1 F 97 15 132/78 H 99 11/19/17 08:41 11/19/17 08:41 11/19/17 08:41 11/19/17 08:41 11/19/17 08:41 Course - Re-evaluation Re-evalutation: 11/19/17 13:10 Patient's presentation is extremely benign she looks well vital signs are stable she has no DVT or PE risk factors, I believe her examination is consistent with tenderness from coughing. She will be given anti- inflammatories strict return precautions After performing a Medical Screening Examination, I estimate there is LOW risk for ACUTE CORONARY SYNDROME, PULMONARY EMBOLI, RESPIRATORY FAILURE, SEPSIS OR MENINGITIS, thus I consider the discharge disposition reasonable. I have reevaluated this patient multiple times and no significant life threatening changes are noted. The patient and I have discussed the diagnosis and risks, and we agree with discharging home with close follow-up. We also discussed returning to the Emergency Department immediately if new or worsening symptoms occur. We have discussed the symptoms which are most concerning (e.g., changing or worsening pain, trouble swallowing or breathing, neck stiffness, fever) that necessitate immediate return. - Vital Signs Vital signs: Temp Pulse Resp BP Pulse Ox 98.4 F 88 16 124/79 97 11/19/17 10:00 11/19/17 10:00 11/19/17 10:00 11/19/17 10:00 11/19/17 10:00 - Diagnostic Test Radiology reviewed: Image reviewed, Reports reviewed - No acute abnormality Discharge - Discharge Clinical Impression: Viral URI with cough, Cough, Body aches Condition: Stable Disposition: HOME, SELF-CARE Instructions: Upper Respiratory Illness ([facility]) Additional Instructions: Follow up with your physician tomorrow for further care or return to the ED IMMEDIATELY if symptoms worsen or new concerns occur. If you cannot afford to follow up with your primary care physician a list of low cost clinics have been provided at the end of your discharge papers as well. Prescriptions: Naproxen 500 mg PO BID #20 tablet
[2017-11-19 10:02] VITALS: BP 124/79
== END 2017-11-19 10:02 | disposition home or self-care (01) ==
LOC: ER 08:35
DX: J06.9 Acute upper respiratory infection, unspecified (principal); M79.1 Myalgia; R07.81 Pleurodynia; R10.12 Left upper quadrant pain; F17.210 Nicotine dependence, cigarettes, uncomplicated; Z90.49 Acquired absence of other specified parts of digestive tract; Z98.51 Tubal ligation status
CPT/HCPCS: 71046; 99283

== ENCOUNTER 2018-04-20 09:28 | Emergency (ER) | payer SELFPAY ==
[2018-04-20] MEDS ORDERED: ONDANSETRON 4 MG TAB.RAPDIS PO ONE (09:56)
--- NOTE | 2018-04-20 09:56 | ER Document Report ---
ED Medical Screen (RME) - General Chief Complaint: Abdominal Pain Stated Complaint: SIDE PAIN Time Seen by Provider: 04/20/18 09:35 Notes: RAPID MEDICAL EVALUATION DISCLOSURE I have seen this patient as part of a Rapid Medical Evaluation and, if applicable, placed any initially appropriate orders. The patient will be seen and fully evaluated, including a full history and physical exam, by a provider ( in Main ED or Fast Track) when a room becomes available. 42-year-old female here with complaints of right lower quadrant abdominal pain ongoing for the past 2 days. Today she started to have some nausea vomiting and chills but no fever. She has diarrhea at baseline and it is unchanged from baseline. She does not have any hematuria dysuria vaginal bleeding/discharge. She has a history of ovarian cysts but states that this feels different. EXAM Moderate right lower quadrant TTP TRAVEL OUTSIDE OF THE [place] IN LAST 30 DAYS: No - Related Data Allergies/Adverse Reactions: orange juice Allergy (Verified 11/19/17 08:39) RASH, ITCHING Past Medical History - Social History Chew tobacco use (# tins/day): No Frequency of alcohol use: None Drug Abuse: None - Past Medical History Cardiac Medical History: Denies: Hx Coronary Artery Disease, Hx Heart Attack, Hx Hypertension Pulmonary Medical History: Reports: Hx Bronchitis, Hx Pneumonia Denies: Hx Asthma, Hx COPD Neurological Medical History: Reports: Hx Migraine. Denies: Hx Cerebrovascular Accident, Hx Seizures Renal/ Medical History: Denies: Hx Peritoneal Dialysis GI Medical History: Reports: Hx Gastroesophageal Reflux Disease Musculoskeltal Medical History: Denies Hx Arthritis Past Surgical History: Reports: Hx Cholecystectomy, Hx Gynecologic Surgery - tubal ligation, Hx Tubal Ligation - Immunizations Immunizations up to date: No Hx Diphtheria, Pertussis, Tetanus Vaccination: Yes Physical Exam - Vital signs Vitals: Temp Pulse Resp BP Pulse Ox 98.3 F 79 16 128/75 H 98 04/20/18 09:36 04/20/18 09:36 04/20/18 09:36 04/20/18 09:36 04/20/18 09:36 Course - Vital Signs Vital signs: Temp Pulse Resp BP Pulse Ox 98.3 F 79 16 128/75 H 98 04/20/18 09:36 04/20/18 09:36 04/20/18 09:36 04/20/18 09:36 04/20/18 09:36
[2018-04-20 10:29] LABS: ABSOLUTE EOSINOPHILS # (AUTO) 0.2 10^3/uL (0.0-0.6); ABSOLUTE LYMPHOCYTES (AUTO) 3.2 10^3/uL (0.5-4.7); ABSOLUTE MONOCYTES (AUTO) 0.4 10^3/uL (0.1-1.4); ABSOLUTE NEUT (AUTO) 5.7 10^3/uL (1.7-8.2); BASOPHILS % (AUTO) 0.5 % (0-2); EOSINOPHILS % (AUTO) 2.5 % (0-6); HEMATOCRIT 36.8 % (36.0-47.0); HEMOGLOBIN 12.3 g/dL (12.0-15.5); LYMPHOCYTES % (AUTO) 33.1 % (13-45); MEAN CORPUSCULAR HEMOGLOBIN 27.3 pg (27.0-33.4); MEAN CORPUSCULAR HGB CONC 33.4 g/dL (32.0-36.0); MEAN CORPUSCULAR VOLUME 82 fl (80-97); MONOCYTES % (AUTO) 3.8 % (3-13); PLATELET COUNT 398 10^3/uL (150-450); RED BLOOD COUNT 4.49 10^6/uL (3.72-5.28); SEGMENTED NEUTROPHILS % (AUTO) 60.1 % (42-78); TOTAL CELLS COUNTED % (AUTO) 100 %; WHITE BLOOD COUNT 9.6 10^3/uL (4.0-10.5)
[2018-04-20 10:44] LABS: ALANINE AMINOTRANSFERASE 28 U/L (9-52); ALKALINE PHOSPHATASE 98 U/L (38-126); ANION GAP 13 (5-19); ASPARTATE AMINO TRANSFERASE 22 U/L (14-36); BILIRUBIN,DIRECT 0.3 mg/dL (0.0-0.4); BILIRUBIN,TOTAL 0.3 mg/dL (0.2-1.3); BLOOD UREA NITROGEN 5 mg/dL (7-20); CALCIUM 8.9 mg/dL (8.4-10.2); CARBON DIOXIDE 25 mmol/L (22-30); CHLORIDE 101 mmol/L (98-107); GLUCOSE 306 mg/dL (75-110); POTASSIUM 4.5 mmol/L (3.6-5.0); SODIUM 139.2 mmol/L (137-145); TOTAL PROTEIN 7.3 g/dL (6.3-8.2)
[2018-04-20 10:47] LABS: APPEARANCE,URINE CLEAR; BILIRUBIN,URINE NEGATIVE (NEGATIVE); COLOR,URINE STRAW; GLUCOSE, URINE >=500 mg/dL (NEGATIVE); KETONES,URINE NEGATIVE (NEGATIVE); LEUKOCYTE ESTERASE,URINE TRACE (NEGATIVE); NITRITE,URINE NEGATIVE (NEGATIVE); PROTEIN,URINE NEGATIVE (NEGATIVE); UROBILINOGEN,URINE NEGATIVE mg/dL (<2.0)
--- NOTE | 2018-04-20 12:39 | RADIOLOGY REPORT (SQ) ---
EXAM DESCRIPTION: CT ABD/PELVIS WITH IV ONLY COMPLETED DATE/TIME: 04/20/2018 12:00 pm REASON FOR STUDY: RLQ pain; eval appendicitis COMPARISON: None. TECHNIQUE: CT scan of the abdomen and pelvis performed using helical scanning technique with dynamic intravenous contrast injection. No oral contrast. Images reviewed with lung, soft tissue, and bone windows. Reconstructed coronal and sagittal MPR images reviewed. Delayed images for evaluation of the urinary system also acquired. All images stored on PACS. All CT scanners at this facility use dose modulation, iterative reconstruction, and/or weight based d osing when appropriate to reduce radiation dose to as low as reasonably achievable (ALARA). [facility]: Dose Right [facility]: CareDose [facility]: Dose Right [facility]: Teradose 4D [facility]: [employer] CONTRAST TYPE AND DOSE: contrast/concentration: Isovue 370.00 mg/ml; Total Contrast Delivered: 99.0 ml; Total Saline Delivered: 59.0 ml RENAL FUNCTION: None required. The patient is less than 50 years old. RADIATION DOSE: CT Rad equipment meets quality standard of care and radiation dose reduction techniq ues were employed. CTDIvol: 19.5 - 20.6 mGy. DLP: 2254 mGy-cm.. LIMITATIONS: None. FINDINGS: LOWER CHEST: No significant findings. No nodules or infiltrates. LIVER: Marked diffuse fatty liver. No focal masses. SPLEEN: Normal size. No focal lesions. PANCREAS: No masses. No significant calcifications. No adjacent inflammation or peripancreatic fluid collections. Pancreatic duct not dilated. GALLBLADDER: Surgically absent. ADRENAL GLANDS: No significant masses or asymmetry. RIGHT KIDNEY AND URETER: No solid masses. No significant calcifications. No hydronephrosis or hyd roureter. LEFT KIDNEY AND URETER: No solid masses. No significant calcifications. No hydronephrosis or hydr oureter. AORTA AND VESSELS: No aneurysm. No dissection. Renal arteries, SMA, celiac without stenosis. RETROPERITONEUM: No retroperitoneal adenopathy, hemorrhage or masses. BOWEL AND PERITONEAL CAVITY: No masses or inflammatory changes. No free fluid or peritoneal masses. APPENDIX: Not visualized. PELVIS: No mass. No free fluid. Normal bladder. ABDOMINAL WALL: No masses. No hernias. BONES: Bilateral pars defects L5. OTHER: No other significant finding. IMPRESSION: Marked fatty liver. No other significant process. TECHNICAL DOCUMENTATION: JOB ID: [id number] Quality ID # [id number]: Final reports with documentation of one or more dose reduction techniques (e.g., Au tomated exposure control, adjustment of the mA and/or kV according to patient size, use of iterative reconstruction technique) 2010 [employer]- All Rights Reserved Reading location - IP/workstation name: [email or web address]
--- NOTE | 2018-04-20 13:36 | ER Document Report ---
ED GI/ - General Mode of Arrival: Ambulatory Information source: Patient TRAVEL OUTSIDE OF THE [place] IN LAST 30 DAYS: No <KELLIE GALLEGOS - Last Filed: 04/20/18 15:24> <GAGE RANGEL - Last Filed: 04/21/18 06:32> - General Chief Complaint: Abdominal Pain Stated Complaint: SIDE PAIN Time Seen by Provider: 04/20/18 09:35 Notes: Patient is a 42-year-old female who presents to the emergency department today with complaints of right lower quadrant abdominal pain. Patient says the pain is constant with intermittent sharp stabbing pains for the last 3 days. Patient states she had a normal bowel movement last night. Patient mentions that her bowel movement was diarrhea but states this is chronic for her over the last 3 years. Patient states her last menstrual period began on Wednesday. Patient states she began vomiting this morning. Patient denies any falls, trauma, vaginal discharge, recent camping or foreign travel. (KELLIE GALLEGOS) - Related Data Allergies/Adverse Reactions: orange juice Allergy (Verified 11/19/17 08:39) RASH, ITCHING Past Medical History - General Information source: Patient - Social History Smoking Status: Current Every Day Smoker Cigarette use (# per day): Yes Chew tobacco use (# tins/day): No Frequency of alcohol use: None Drug Abuse: None Occupation: Agricultural Agent Family History: Arthritis, CVA, DM, Hyperlipidemia, Hypertension, Malignancy, Thyroid Disfunction Patient has suicidal ideation: No Patient has homicidal ideation: No Pulmonary Medical History: Reports: Hx Bronchitis, Hx Pneumonia Neurological Medical History: Reports: Hx Migraine GI Medical History: Reports: Hx Gastroesophageal Reflux Disease Past Surgical History: Reports: Hx Cholecystectomy, Hx Gynecologic Surgery - tubal ligation, Hx Tubal Ligation - Immunizations Immunizations up to date: No Hx Diphtheria, Pertussis, Tetanus Vaccination: Yes <KELLIE GALLEGOS - Last Filed: 04/20/18 15:24> Review of Systems - Review of Systems Constitutional: No symptoms reported EENT: No symptoms reported Cardiovascular: No symptoms reported Respiratory: No symptoms reported Gastrointestinal: See HPI, Abdominal pain, Diarrhea - chronic, Vomiting Genitourinary: No symptoms reported Female Genitourinary: denies: Vaginal discharge Musculoskeletal: No symptoms reported Skin: No symptoms reported Hematologic/Lymphatic: No symptoms reported Neurological/Psychological: No symptoms reported -: Yes All other systems reviewed and negative <KELLIE GALLEGOS - Last Filed: 04/20/18 15:24> Physical Exam <KELLIE GALLEGOS - Last Filed: 04/20/18 15:24> <GAGE RANGEL - Last Filed: 04/21/18 06:32> - Vital signs Vitals: Temp Pulse Resp BP Pulse Ox 98.3 F 79 16 128/75 H 98 04/20/18 09:36 04/20/18 09:36 04/20/18 09:36 04/20/18 09:36 04/20/18 09:36 - Notes Notes: Physical Exam: General: Alert, appears well. HEENT: Normocephalic. Atraumatic. PERRL. Extraocular movements intact. Oropharynx clear. Neck: Supple. Non-tender. Respiratory: No respiratory distress. Clear and equal breath sounds bilaterally. Cardiovascular: Regular rate and rhythm. Abdominal: Obese. Minimal RLQ tenderness with palpation. No distension. Normal Bowel Sounds. Back: Non-tender. No deformity or step off. Extremities: Moves all four extremities. Upper extremities: Normal inspection. Normal ROM. Lower extremities: Normal inspection. No edema. Normal ROM. Neurological: Normal cognition. AAOx4. Normal speech. Psychological: Normal affect. Normal Mood. Skin: Warm. Dry. Normal color. (KELLIE GALLEGOS) Course - Laboratory Result Diagrams: 04/20/18 10:07 04/20/18 10:07 <KELLIE GALLEGOS - Last Filed: 04/20/18 15:24> - Laboratory Result Diagrams: 04/20/18 10:07 04/20/18 10:07 <GAGE RANGEL - Last Filed: 04/21/18 06:32> - Re-evaluation Re-evalutation: 04/20/18 13:43 Patient's labs within normal limits are nonsignificant with no concerning findings on CT of abdomen pelvis. Appendix was not visualized but per radiology there is no evidence of intra-time. Discussed findings with patient. She has a chronic history of diarrhea since her gallbladder removal approximately 2 years ago. Her pain is waxing and waning sharp in nature. She denies any black or red stool any changes in her bowel patterns. She has never tried Bentyl in the past. Will provide her nausea medication as well as Bentyl she is to follow-up community care clinic in the next 3-5 days for reevaluation or certainly in the emergency department for development any fevers or worsening of pain. (GAGE RANGEL) - Vital Signs Vital signs: Temp Pulse Resp BP Pulse Ox 98.3 F 81 16 121/77 98 04/20/18 09:36 04/20/18 14:00 04/20/18 14:00 04/20/18 14:00 04/20/18 14:00 - Laboratory Laboratory results interpreted by me: 04/20/18 04/20/18 04/20/18 09:52 10:07 10:07 RDW 15.0 H BUN 5 L Glucose 306 H Urine Glucose (UA) >=500 H Urine Blood MODERATE H Ur Leukocyte Esterase TRACE H Discharge <KELLIE GALLEGOS - Last Filed: 04/20/18 15:24> <GAGE RANGEL - Last Filed: 04/21/18 06:32> - Discharge Clinical Impression: Abdominal pain Qualifiers: Abdominal location: right lower quadrant Qualified Code(s): R10.31 - Right lower quadrant pain Diarrhea Qualifiers: Diarrhea type: unspecified type Qualified Code(s): R19.7 - Diarrhea, unspecified Disposition: HOME, SELF-CARE Instructions: Abdominal Pain ([facility]), Antispasmodics ([facility]), Diarrhea, Nonspecific ([facility]) Prescriptions: Dicyclomine HCl [Bentyl 20 mg Tablet] 20 mg PO QID PRN #30 tablet PRN Reason: Ondansetron [Zofran Odt 4 mg Tablet] 1 tab PO ASDIR PRN #15 tab.rapdis PRN Reason: For Nausea/Vomiting Scribe Attestation: 04/21/18 06:32 I personally performed the services described documentation, reviewed and edited the documentation which was dictated to describe my presence, and it accurately records my words and actions. (GAGE RANGEL) Scribe Documentation - Scribe Written by Smita:: Smita Peter, 04/20/2018 1527 acting as scribe for :: Jeremy <KELLIE GALLEGOS - Last Filed: 04/20/18 15:24>
[2018-04-20] MEDS ORDERED: ACETAMINOPHEN 325 MG TABLET PO PRN (13:40)
[2018-04-20] MEDS ORDERED: ONDANSETRON HCL INJ/PF 4 MG/2 ML SDV IV PRN (13:40)
[2018-04-20] MEDS ORDERED: OXYCODONE-ACETAMINOPHEN 5-325 MG TABLET PO PRN (13:40)
[2018-04-20] MEDS ORDERED: CLINDAMYCIN 600 MG/D5W RTU 600 MG/50 ML RTUPB IV SCH (14:00)
[2018-04-20 14:29] VITALS: BP 121/77
[2018-04-20] MEDS ORDERED: ENOXAPARIN SODIUM INJ 40 MG/0.4 ML DISP.SYRIN SUBCUT ONE (14:30)
[2018-04-21] MEDS ORDERED: ENOXAPARIN SODIUM INJ 40 MG/0.4 ML DISP.SYRIN SUBCUT SCH (10:00)
== END 2018-04-20 14:15 | disposition home or self-care (01) ==
LOC: ER 09:28
DX: R10.31 Right lower quadrant pain (principal); R19.7 Diarrhea, unspecified; R11.10 Vomiting, unspecified; F17.210 Nicotine dependence, cigarettes, uncomplicated
CPT/HCPCS: 99284; 36415; 83690; 85025; 81025; 80053; 81001; 74177; S0119

== ENCOUNTER 2019-06-22 08:18 | Emergency (ER) | payer SELFPAY ==
--- NOTE | 2019-06-22 08:49 | ER Document Report ---
ED General - General Chief Complaint: Headache Stated Complaint: HEADACHE, BLURRED VISION Time Seen by Provider: 06/22/19 08:32 TRAVEL OUTSIDE OF THE [place] IN LAST 30 DAYS: No - HPI Notes: Patient presents with 1 week of occipital headache but this morning awoke and was having intermittent blurry vision of both eyes right greater than left. No recent traumas or falls no recent fevers or illnesses. She has had occipital headaches in the past but the blurred vision is new. No other symptoms - Related Data Allergies/Adverse Reactions: orange juice Allergy (Verified 06/22/19 08:19) RASH, ITCHING Past Medical History - Social History Smoking Status: Former Smoker Family History: Arthritis, CVA, DM, Hyperlipidemia, Hypertension, Malignancy, Thyroid Disfunction Patient has suicidal ideation: No Patient has homicidal ideation: No - Past Medical History Cardiac Medical History: Denies: Hx Coronary Artery Disease, Hx Heart Attack, Hx Hypertension Pulmonary Medical History: Reports: Hx Bronchitis, Hx Pneumonia Denies: Hx Asthma, Hx COPD Neurological Medical History: Reports: Hx Migraine. Denies: Hx Cerebrovascular Accident, Hx Seizures Renal/ Medical History: Denies: Hx Peritoneal Dialysis GI Medical History: Reports: Hx Gastroesophageal Reflux Disease Musculoskeletal Medical History: Denies Hx Arthritis Past Surgical History: Reports: Hx Cholecystectomy, Hx Gynecologic Surgery - tubal ligation, Hx Tubal Ligation - Immunizations Immunizations up to date: No Hx Diphtheria, Pertussis, Tetanus Vaccination: Yes Review of Systems - Review of Systems Constitutional: No symptoms reported EENT: No symptoms reported Cardiovascular: No symptoms reported Respiratory: No symptoms reported Gastrointestinal: No symptoms reported Genitourinary: No symptoms reported Female Genitourinary: No symptoms reported Musculoskeletal: No symptoms reported Skin: No symptoms reported Hematologic/Lymphatic: No symptoms reported Neurological/Psychological: See HPI Physical Exam - Vital signs Vitals: Temp Pulse Resp BP Pulse Ox 98.0 F 86 18 154/81 H 100 06/22/19 08:22 06/22/19 08:22 06/22/19 08:22 06/22/19 08:22 06/22/19 08:22 - General General appearance: Appears well, Alert - HEENT Head: Normocephalic, Atraumatic Eyes: Normal Conjunctiva: Normal Cornea: Normal Extraocular movements intact: Yes Pupils: PERRL - Respiratory Respiratory status: No respiratory distress Chest status: Nontender Breath sounds: Normal - Cardiovascular Rhythm: Regular Heart sounds: Normal auscultation Murmur: No - Abdominal Inspection: Normal Distension: No distension - Neurological Neuro grossly intact: Yes Cognition: Normal Orientation: AAOx4 Speech: Normal Cranial nerves: Normal Cerebellar coordination: Normal. No: Gait ataxia Motor strength normal: LUE, RUE, LLE, RLE Course - Re-evaluation Re-evalutation: 06/22/19 08:48 Will provide headache medication and MRI brain due to new onset of blurred vision with occipital headache rule out CVA 06/22/19 13:41 MRI of the brain with signs that could suggest migraines. Intermittent blurry vision. I discussed that she needs to follow-up with an tag stringer to have her eyes checked. Will provide Compazine for headaches. Return precautions provided - Vital Signs Vital signs: Temp Pulse Resp BP Pulse Ox 98.0 F 86 18 154/81 H 100 06/22/19 08:22 06/22/19 08:22 06/22/19 08:22 06/22/19 08:22 06/22/19 08:22 - Laboratory Result Diagrams: 06/22/19 09:05 Laboratory results interpreted by me: 06/22/19 09:05 Sodium 136.9 L BUN 6 L Glucose 240 H Discharge - Discharge Clinical Impression: Migraine Qualifiers: Migraine type: with aura Status migrainosus presence: without status migrainosus Intractability: not intractable Qualified Code(s): G43.109 - Migraine with aura, not intractable, without status migrainosus Condition: Good Disposition: HOME, SELF-CARE Instructions: Headache ([facility]) Additional Instructions: Please follow-up with an tag stringer or rv body mechanic to have your eyes checked within the next week. Prescriptions: Prochlorperazine Maleate [Compazine 10 mg Tablet] 10 mg PO ASDIR PRN #10 tablet PRN Reason:
[2019-06-22 09:40] LABS: ANION GAP 11 (5-19); BLOOD UREA NITROGEN 6 mg/dL (7-20); CALCIUM 9.2 mg/dL (8.4-10.2); CARBON DIOXIDE 27 mmol/L (22-30); CHLORIDE 99 mmol/L (98-107); GLUCOSE 240 mg/dL (75-110); POTASSIUM 4.4 mmol/L (3.6-5.0)
--- NOTE | 2019-06-22 10:44 | RADIOLOGY REPORT (SQ) ---
EXAM DESCRIPTION: MRI HEAD COMBO COMPLETED DATE/TIME: 06/22/2019 10:23 am REASON FOR STUDY: occipital headache, blurred vision COMPARISON: None. TECHNIQUE: Multiplanar imaging includes noncontrasted T1, T2, FLAIR, diffusion with ADC map and post gadolinium contrast T1 sequences. Images stored on PACS. CONTRAST TYPE AND DOSE: 20 mL Dotarem. RENAL FUNCTION: Not indicated. ACR Type II contrast agent associated with few, if any, unconfounded cases of NSF LIMITATIONS: None. FINDINGS: ANATOMY: No anomalies. Normal vascular flow voids. Pituitary fossa normal. CSF SPACES: Normal in size and contour. No hemorrhage. CEREBRUM: Sulci and gyri normal in size and contour. Minimal, occasional T2/FLAIR hyperintense foci of the hemispheric white matter (for example series 7, image 16). No evidence of hemorrhage, mass, o r extraaxial fluid collection. No abnormal enhancement post contrast. POSTERIOR FOSSA: No signal alteration. No hemorrhage. No edema, masses, or mass effect. Internal daniel tory canals, cerebellopontine angles, mastoids normal. No enhancing lesions. No abnormal enhancement post contrast. DIFFUSION IMAGING: Negative for acute or subacute infarction. ORBITS: No masses. Globes normal. PARANASAL SINUSES: No fluid levels. Mucosa normal. OTHER: No other significant finding. IMPRESSION: No specific MR findings to explain headaches or blurred vision. There are minimal T2/FL AIR white matter hyperintensities of the hemispheric white matter, which are nonspecific but can be s een in migraine headaches. No abnormal intracranial contrast enhancement. EVIDENCE OF ACUTE STROKE: NO. TECHNICAL DOCUMENTATION: JOB ID: [id number] [employer]- All Rights Reserved Reading location - IP/workstation name: [email or web address]
[2019-06-22] MEDS ORDERED: ACETAMINOPHEN 325 MG TABLET PO ONE (11:23)
[2019-06-22 14:34] VITALS: BP 130/82
== END 2019-06-22 14:36 | disposition home or self-care (01) ==
LOC: ER 08:18
DX: G43.109 Migraine with aura, not intractable, without status migrainosus (principal); Z90.49 Acquired absence of other specified parts of digestive tract; Z98.51 Tubal ligation status
CPT/HCPCS: 99284; 36415; 80048; 70553; A9576

== ENCOUNTER 2019-11-01 15:36 | Emergency (ER) | payer SELFPAY ==
[2019-11-01 16:09] VITALS: BP 145/78
--- NOTE | 2019-11-01 17:20 | ER Document Report ---
ED Respiratory Problem - General Chief Complaint: Cough Stated Complaint: COUGH,FEVER Time Seen by Provider: 11/01/19 17:09 Primary Care Provider: [facility] [Provider Group] - Follow up as needed [facility] [Provider Group] - Follow up as needed [facility] [Provider Group] - Follow up as needed [facility] [Provider Group] - Follow up as needed Mode of Arrival: Ambulatory Information source: Patient Notes: 43-year-old female presented to ED for complaint of cough cold congestion sore throat and fever. She states she started getting sick yesterday. She states the only medical history she has is her gallbladder removal and a bilateral tubal ligation. She states she does not smoke drink or use any drugs and lives with her . Patient is alert oriented respirations regular nonlabored speaking in full sentences. TRAVEL OUTSIDE OF THE [place] IN LAST 30 DAYS: No - HPI Patient complains to provider of: Cough Onset: Yesterday Duration: Worse/persistent Initiating Event: URI Quality of pain: Achy Severity: Moderate Pain Level: 2 Cough: Nonproductive Sputum amount: None Associated symptoms: Chills, Congestion, Cough, Fever, Headache, PND, Runny nose, Sinus pain/pressure Similar symptoms previously: Yes Recently seen / treated by doctor: No - Related Data Allergies/Adverse Reactions: orange juice Allergy (Verified 06/22/19 08:19) RASH, ITCHING fruit juice Allergy (Uncoded 11/01/19 17:06) Past Medical History - General Information source: Patient - Social History Smoking Status: Former Smoker Frequency of alcohol use: None Drug Abuse: None Lives with: Spouse/Significant other Family History: Arthritis, CVA, DM, Hyperlipidemia, Hypertension, Malignancy, Thyroid Disfunction Patient has suicidal ideation: No Patient has homicidal ideation: No - Past Medical History Cardiac Medical History: Reports: None Pulmonary Medical History: Reports: Hx Bronchitis, Hx Pneumonia EENT Medical History: Reports: None Neurological Medical History: Reports: Hx Migraine Endocrine Medical History: Reports: None Renal/ Medical History: Reports: None Malignancy Medical History: Reports: None GI Medical History: Reports: Hx Gastroesophageal Reflux Disease Musculoskeletal Medical History: Reports None Skin Medical History: Reports None Psychiatric Medical History: Reports: None Traumatic Medical History: Reports: None Infectious Medical History: Reports: None Past Surgical History: Reports: Hx Cholecystectomy, Hx Tubal Ligation - Immunizations Immunizations up to date: No Hx Diphtheria, Pertussis, Tetanus Vaccination: Yes Review of Systems - Review of Systems Constitutional: Chills, Fever, Recent illness EENT: Nose congestion, Nose discharge, Sinus pressure, Sinus discharge, Throat pain Cardiovascular: No symptoms reported Respiratory: Cough Gastrointestinal: No symptoms reported Genitourinary: No symptoms reported Female Genitourinary: No symptoms reported Musculoskeletal: No symptoms reported Skin: No symptoms reported Hematologic/Lymphatic: No symptoms reported Neurological/Psychological: Headaches -: Yes All other systems reviewed and negative Physical Exam - Vital signs Vitals: Temp Pulse Resp BP Pulse Ox 99.2 F 103 H 18 145/78 H 97 11/01/19 16:08 11/01/19 16:08 11/01/19 16:08 11/01/19 16:08 11/01/19 16:08 Interpretation: Normal - General General appearance: Appears well, Alert - HEENT Head: Normocephalic, Atraumatic Eyes: Normal Pupils: PERRL Ears: Normal External canal: Normal Tympanic membrane: Normal Sinus: Normal Nasal: Purulent discharge, Swelling Mouth/Lips: Normal Mucous membranes: Normal Pharynx: Post nasal drainage Neck: Normal - Respiratory Respiratory status: No respiratory distress Chest status: Nontender Breath sounds: Nonproductive cough Chest palpation: Normal - Cardiovascular Rhythm: Regular Heart sounds: Normal auscultation Murmur: No - Abdominal Inspection: Normal Distension: No distension Bowel sounds: Normal Tenderness: Nontender Organomegaly: No organomegaly - Back Back: Normal, Nontender - Extremities General upper extremity: Normal inspection, Nontender, Normal color, Normal ROM, Normal temperature General lower extremity: Normal inspection, Nontender, Normal color, Normal ROM, Normal temperature, Normal weight bearing. No: Catherine's sign - Neurological Neuro grossly intact: Yes Cognition: Normal Orientation: AAOx4 Fabien Coma Scale Eye Opening: Spontaneous Mcdonald Coma Scale Verbal: Oriented Mcdonald Coma Scale Motor: Obeys Commands Fabien Coma Scale Total: 15 Speech: Normal Motor strength normal: LUE, RUE, LLE, RLE Sensory: Normal - Psychological Associated symptoms: Normal affect, Normal mood - Skin Skin Temperature: Warm Skin Moisture: Dry Skin Color: Normal Course - Re-evaluation Re-evalutation: 11/01/19 19:44 After performing a Medical Screening Examination, I estimate there is LOW risk for ACUTE CORONARY SYNDROME, RESPIRATORY FAILURE, SEPSIS OR MENINGITIS, thus I consider the discharge disposition reasonable. I have reevaluated this patient multiple times and no significant life threatening changes are noted. The patient and I have discussed the diagnosis and risks, and we agree with discharging home with close follow-up. We also discussed returning to the Emergency Department immediately if new or worsening symptoms occur. We have discussed the symptoms which are most concerning (e.g., changing or worsening pain, trouble swallowing or breathing, neck stiffness, fever) that necessitate immediate return. - Vital Signs Vital signs: Temp Pulse Resp BP Pulse Ox 99.2 F 103 H 18 145/78 H 97 11/01/19 16:08 11/01/19 16:08 11/01/19 16:08 11/01/19 16:11/01/19 16:08 - Diagnostic Test Radiology reviewed: Image reviewed, Reports reviewed Discharge - Discharge Clinical Impression: URI (upper respiratory infection) Qualifiers: URI type: unspecified viral URI Qualified Code(s): J06.9 - Acute upper respiratory infection, unspecified Condition: Stable Disposition: HOME, SELF-CARE Additional Instructions: UPPER RESPIRATORY ILLNESS: You have a viral infection of the respiratory passages -- a "cold." This common infection causes nasal congestion, drainage, and often sore throat and cough. It is highly contagious. The disease usually lasts about 10 to 14 days. There is no "cure" for the viral infection -- it must run its course. If there is a complication, such as bacterial infection in the nose, sinuses, middle ear, or bronchial tubes, antibiotics may be required. The antibiotics won't affect the virus. Drink plenty of fluids. A humidifier may help. An expectorant medication or decongestant may make you more comfortable. Use acetaminophen or ibuprofen for fever or aches. See the doctor if fever persists over two days, if there is any significant worsening of your symptoms, or if you simply fail to improve as expected. You have been recommended treatment with Coricidin HBP cough cold congestion chest and symptoms with elevated blood pressure. You could also use Flonase which is [id number] 1 spray each nostril twice a day. You could also use salt soda solution gargles. These will help to remove the drainage from the back your throat. Chloraseptic spray was [id number] that will also help with your sore throat. Salt and soda solution gargle 1 quart of water 1 tablespoon of salt 1 teaspoon of baking soda Mixed 3 ingredients together and boil for 1 minute Placed in a covered quart jar Use 1/2 ounce of cold solution to gargle 3 times a day COUGH-SUPPRESSANT & EXPECTORANT MEDICATION: You are to use a cough medication as needed for relief of symptoms. This medicine is a combination of an expectorant (to make the mucous thinner and more easily "coughed up") and a cough suppressant (to reduce the frequency of coughing). The cough-suppressant medicine is related to narcotics. You may experience mild nausea and sleepiness. Some patients who are very sensitive to narcotics may have stomach pain from this medicine. Taking the medicine with food reduces these side effects. Do not drive or work with machinery until you know how this medicine affects you. The expectorant should have no side effects. Iodine-containing expectorants (such as organidin) should not be taken by persons with active thyroid disease unless approved by your doctor. Call the doctor if you develop shortness of breath, hives, rash, itching, lightheadedness, or severe nausea and vomiting. USE OF ACETAMINOPHEN (Tylenol): Acetaminophen may be taken for pain relief or fever control. It's much safer than aspirin, offering a wider range of "safe" dosages. It is safe during . Some brand names are Tylenol, Panadol, Datril, Anacin 3, Tempra, and Liquiprin. Acetaminophen can be repeated every four hours. The following are maximum recommended dosages: >89 pounds or adults 650 mg to 900 mg Acetaminophen can be repeated every four hours. Maximum dose not to exceed 4000 mg a day. SMOKING: If you smoke, you should stop smoking. The tar and chemicals in cigarette smoke are harmful. Smoking has been shown to cause: emphysema chronic bronchitis lung cancer mouth and throat cancer stomach and pancreas cancer premature aging defects In addition, smoking increases ear and lung infections in children of smokers. FOLLOW-UP CARE: If you have been referred to a physician for follow-up care, call the physicians office for an appointment as you were instructed or within the next two days. If you experience worsening or a significant change in your symptoms, notify the physician immediately or return to the Emergency Department at any time for re-evaluation. Forms: Return to Work Referrals: [facility] [Provider Group] - Follow up as needed [facility] [Provider Group] - Follow up as needed [facility] [Provider Group] - Follow up as needed [facility] [Provider Group] - Follow up as needed
--- NOTE | 2019-11-01 17:55 | RADIOLOGY REPORT (SQ) ---
EXAM DESCRIPTION: CHEST 2 VIEWS COMPLETED DATE/TIME: 11/01/2019 5:25 pm REASON FOR STUDY: cough congestion fever COMPARISON: 11/19/2017 EXAM PARAMETERS: NUMBER OF VIEWS: two views TECHNIQUE: Digital Frontal and Lateral radiographic views of the chest acquired. RADIATION DOSE: NA LIMITATIONS: none FINDINGS: LUNGS AND PLEURA: No opacities, masses or pneumothorax. No pleural effusion. MEDIASTINUM AND HILAR STRUCTURES: No masses or contour abnormalities. HEART AND VASCULAR STRUCTURES: Heart normal size. No evidence for failure. BONES: No acute findings. HARDWARE: None in the chest. OTHER: No other significant finding. IMPRESSION: NO ACUTE RADIOGRAPHIC FINDING IN THE CHEST. TECHNICAL DOCUMENTATION: JOB ID: [id number] [employer]- All Rights Reserved Reading location - IP/workstation name: [email or web address]
== END 2019-11-01 18:21 | disposition home or self-care (01) ==
LOC: ER 15:36
DX: R05 Cough (principal); R50.9 Fever, unspecified
CPT/HCPCS: 71046; 99283

== ENCOUNTER 2020-01-10 07:29 | Emergency (ER) | payer SELFPAY ==
[2020-01-10 10:26] LABS: A TYPE INFLUENZA AG NEGATIVE (NEGATIVE); B INFLUENZA AG NEGATIVE (NEGATIVE)
--- NOTE | 2020-01-10 10:54 | RADIOLOGY REPORT (SQ) ---
EXAM DESCRIPTION: CHEST SINGLE VIEW COMPLETED DATE/TIME: 01/10/2020 10:44 am REASON FOR STUDY: cough COMPARISON: 11/01/2019 EXAM PARAMETERS: NUMBER OF VIEWS: One view. TECHNIQUE: Single frontal radiographic view of the chest acquired. RADIATION DOSE: NA LIMITATIONS: None. FINDINGS: LUNGS AND PLEURA: No opacities, masses or pneumothorax. No pleural effusion. MEDIASTINUM AND HILAR STRUCTURES: No masses. Contour normal. HEART AND VASCULAR STRUCTURES: Heart normal in size. Normal vasculature. BONES: No acute findings. HARDWARE: None in the chest. OTHER: No other significant finding. IMPRESSION: No focal airspace disease or other evidence of acute intrathoracic process. TECHNICAL DOCUMENTATION: JOB ID: [id number] [employer]- All Rights Reserved Reading location - IP/workstation name: [email or web address]
--- NOTE | 2020-01-10 11:27 | ER Document Report ---
HPI - HPI Time Seen by Provider: 01/10/20 08:33 Pain Level: 3 Context: Patient is a 44-year-old female who presents to the emergency department with a chief complaint of cough. Patient states that she also has a sore throat. Patient recently went to [place] and came back. She denies talked with anyone with known coronavirus symptoms. - CONSTITUTIONAL Constitutional: DENIES: Fever, Chills - EENT EENT: REPORTS: Sore Throat - x 2 days. DENIES: Ear Pain, Eye problems - NEURO Neurology: REPORTS: Headache - CARDIOVASCULAR Cardiovascular: REPORTS: Chest pain - w/cough - RESPIRATORY Respiratory: REPORTS: Coughing - non productive. DENIES: Trouble Breathing - GASTROINTESTINAL Gastrointestinal: DENIES: Abdominal Pain, Black / Bloody Stools - URINARY Urinary: DENIES: Dysuria, Urgency, Frequency - REPRODUCTIVE Reproductive: DENIES: : Past Medical History - Social History Smoking Status: Never Smoker Chew tobacco use (# tins/day): No Frequency of alcohol use: Social Drug Abuse: None Family History: Arthritis, CVA, DM, Hyperlipidemia, Hypertension, Malignancy, Thyroid Disfunction Patient has suicidal ideation: No Patient has homicidal ideation: No - Past Medical History Cardiac Medical History: Denies: Hx Heart Attack, Hx Hypertension Pulmonary Medical History: Reports: Hx Bronchitis, Hx Pneumonia Denies: Hx Asthma, Hx COPD Neurological Medical History: Reports: Hx Migraine. Denies: Hx Seizures GI Medical History: Reports: Hx Gastroesophageal Reflux Disease Musculoskeletal Medical History: Denies Hx Arthritis Past Surgical History: Reports: Hx Cholecystectomy, Hx Gynecologic Surgery - tubal ligation, Hx Tubal Ligation - Immunizations Immunizations up to date: No Hx Diphtheria, Pertussis, Tetanus Vaccination: Yes Vertical Provider Document - CONSTITUTIONAL Agree With Documented VS: Yes Exam Limitations: No Limitations General Appearance: No Apparent Distress - INFECTION CONTROL TRAVEL OUTSIDE OF THE [place] IN LAST 30 DAYS: No - HEENT HEENT: Atraumatic, Normocephalic, PERRLA, Pharyngeal Tenderness, Tympanic Membrane Bulging. negative: Conjuctival Injection, Pharyngeal Exudate, Phar yngeal Erythema, Tympanic Membrane Red - NECK Neck: Normal Inspection, Supple. negative: Lymphadenopathy-Left, Lymphadenopathy-Right - RESPIRATORY Respiratory: Breath Sounds Normal, No Respiratory Distress - CARDIOVASCULAR Cardiovascular: Regular Rate, Regular Rhythm Pulses: Normal: Radial - MUSCULOSKELETAL/EXTREMETIES Musculoskeletal/Extremeties: FROM - NEURO Level of Consciousness: Awake, Alert, Appropriate - DERM Integumentary: Warm, Dry, No Rash Course - Re-evaluation Re-evalutation: 01/10/20 Patient's chest x-ray is negative. No pneumonia noted. Influenza test and rapid strep are negative. Advised the patient to call the [facility] if they are suspicious for clubbing 19. She is in agreement with this plan. We will start the patient on Promethazine DM to help with cough. Follow-up precautions were given. Verbal discharge instructions were given to the patient. They verbalized understanding. They are stable for discharge. - Vital Signs Vital signs: Temp Pulse Resp BP Pulse Ox 98.6 F 96 18 152/81 H 99 01/10/20 07:39 01/10/20 07:39 01/10/20 07:39 01/10/20 07:39 01/10/20 07:39 Discharge - Discharge Clinical Impression: Cough, Sore throat Condition: Stable Disposition: HOME, SELF-CARE Additional Instructions: You are seen today in the emergency department for a cough, sore throat, and congestion. Chest x-ray and flu tests are normal. You are being sent home with cough medication. If you continue to have symptoms, please call the CDC you for testing for COVID 19. Please make sure you limit your contact with other people. Wash your hands frequently. If you cough, coughing your elbow or into tissue any immediately wash your hands. Follow-up with [facility] or [facility] for regular care. Prescriptions: Promethazine/Dextromethorphan [Promethazine-Dm Solution] 5 ml PO Q6HP PRN #50 ml PRN Reason: Forms: Special Work Note, Return to Work Referrals: [facility] [Provider Group] - Follow up as needed [facility] [Provider Group] - Follow up as needed
[2020-01-10 11:37] VITALS: BP 146/97
== END 2020-01-10 11:37 | disposition home or self-care (01) ==
LOC: ER 07:29
DX: R05 Cough (principal); J02.9 Acute pharyngitis, unspecified; R51 Headache; R07.9 Chest pain, unspecified; Z87.01 Personal history of pneumonia (recurrent)
CPT/HCPCS: 71045; 87070; 87077; 87804; 87880; 99283

== ENCOUNTER 2020-03-02 02:05 | Emergency (ER) | payer SELFPAY ==
[2020-03-02] MEDS ORDERED: HYDROXYZINE HCL INJ 50 MG/1 ML VIAL IM ONE (02:55)
--- NOTE | 2020-03-02 02:56 | ER Document Report ---
ED Headache - General Chief Complaint: Headache Stated Complaint: HEADACHE AND HANDS TINGLY Time Seen by Provider: 03/02/20 02:28 Mode of Arrival: Ambulatory Information source: Patient Notes: 44-year-old woman presents to the emergency department with a complaint of headache which began approximately 2 hours prior to her arrival to the emergency department. She states that the pain is located in the back of her head, a throbbing discomfort. She denies nausea, visual changes or associated dizziness. She complains of tingling in her hands and fingers bilaterally which began with a headache. She has a history of headaches in the past, denies migraines. She has not taken any medications, presents to the ER from her workplace. TRAVEL OUTSIDE OF THE [place] IN LAST 30 DAYS: No - Related Data Allergies/Adverse Reactions: No Known Drug Allergies Allergy (Verified 01/10/20 08:06) orange juice Allergy (Verified 01/10/20 08:06) RASH, ITCHING fruit juice Allergy (Uncoded 01/10/20 08:06) Past Medical History - Social History Smoking Status: Never Smoker Frequency of alcohol use: None Drug Abuse: None Family History: Arthritis, CVA, DM, Hyperlipidemia, Hypertension, Malignancy, Thyroid Disfunction Patient has homicidal ideation: No - Past Medical History Cardiac Medical History: Denies: Hx Heart Attack, Hx Hypertension Pulmonary Medical History: Reports: Hx Bronchitis, Hx Pneumonia Denies: Hx Asthma, Hx COPD Neurological Medical History: Reports: Hx Migraine. Denies: Hx Seizures GI Medical History: Reports: Hx Gastroesophageal Reflux Disease Musculoskeletal Medical History: Denies Hx Arthritis Past Surgical History: Reports: Hx Cholecystectomy, Hx Gynecologic Surgery - tubal ligation, Hx Tubal Ligation - Immunizations Immunizations up to date: No Hx Diphtheria, Pertussis, Tetanus Vaccination: Yes Review of Systems - Review of Systems Notes: Constitutional: Negative for fever. HENT: Negative for sore throat. Eyes: Negative for visual changes. Cardiovascular: Negative for chest pain. Respiratory: Negative for shortness of breath. Gastrointestinal: Negative for abdominal pain, vomiting or diarrhea. Genitourinary: Negative for dysuria. Musculoskeletal: Negative for back pain. Skin: Negative for rash. Neurological: + headaches, + tingling in the hands. 10 point ROS negative except as marked above and in HPI. Physical Exam - Vital signs Vitals: Temp Pulse Resp BP Pulse Ox 98.3 F 92 16 150/93 H 100 03/02/20 02:09 03/02/20 02:09 03/02/20 02:09 03/02/20 02:03/02/20 02:09 - Notes Notes: PHYSICAL EXAMINATION: Physical Exam: General: Well-nourished well-developed 44-year-old woman in no acute distress HEENT: NC/AT, pupils equal round and reactive to light, MM moist,nares clear, oropharynx clear, airway patent Neck: supple, no adenopathy, no masses. Good range of motion Lungs: clear, no wheezing, no rales no rhonchi CVS: Regular rate and rhythm no murmur gallop or rub Abdomen: Soft, active, nontender, no masses, no hepatosplenomegaly Ext: No edema, clubbing or cyanosis. Neuro: Alert and responsive, moving all 4 extremities on command, cranial nerves intact, no focal findings Skin: Intact no open lesions, no rash PSYCH: Normal mood, normal affect. Course - Re-evaluation Re-evalutation: 03/02/20 04:00 Patient was given hydroxyzine 75 mg IM, states that her headache is improved and the tingling has discontinued. I explained to patient that she likely is having a tension headache with component of anxiety. 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 Patient will be discharged home to follow-up as an outpatient as needed with primary care doctor. Patient is in agreement with this plan. - Vital Signs Vital signs: Temp Pulse Resp BP Pulse Ox 98.3 F 92 16 150/93 H 100 03/02/20 02:34 03/02/20 02:09 03/02/20 02:09 03/02/20 02:03/02/20 02:09 Discharge - Discharge Clinical Impression: Paresthesia of both hands Headache Qualifiers: Headache type: tension-type Headache chronicity pattern: acute headache Int ractability: not intractable Qualified Code(s): G44.209 - Tension-type headache, unspecified, not intractable Condition: Good Disposition: HOME, SELF-CARE Instructions: Headache ([facility]) Additional Instructions: You were diagnosed and treated in the emergency department for tension type headache. You are given medication which is symptoms used to treat anxiety. Medicine. After the patient a prescription for hydroxyzine tablets, have encouraged her to follow-up with the outpatient clinic for referral if needed. Patient acknowledges understanding of this plan and is in agreement. HOME CARE INSTRUCTIONS & INFORMATION: Thank you for choosing us for your medical needs. We hope you're satisfied with the care you received. After you leave, you must properly care for your problem and, at the same time, observe its progress. Any condition can change. Some illnesses can change rapidly over hours or days. If your condition worsens, return to the Emergency Department or see your physician promptly. ABOUT YOUR X-RAYS AND EKG'S: If you had an EKG or X-rays taken, they have been read by the Emergency Physician. The X-rays and EKG's will also be read by a Radiologist or Door Liner within 24 hours. If discrepancies are noted, you will be notified by telephone. Please be certain the ED has a correct telephone number & address where you can be reached. Also, realize that some fractures or abnormalities do not show up on initial X-rays. If your symptoms continue, see your physician. ABOUT YOUR LABORATORY TEST: If you had laboratory tests, the results have been reviewed by the Emergency Physician. Some test results (for example cultures) may not be available for several days. You will be contacted if any test result shows you need additional treatment. Please be certain the ED has a correct telephone number and address where you can be reached. ABOUT YOUR MEDICATIONS: You will receive instructions on how to take your medicine on the prescription label you receive. Additional information may be provided by the Pharmacy. If you have questions afterwards, call the ED for clarification or further instructions. Some prescribed medications may cause drowsiness. Do not perform tasks such as driving a car or operating machinery without consulting your Pharmacist. If you feel you need a refill of pain medication, your condition will need re-evaluation. Please do not call for a refill of any medication. ABOUT YOUR SIGNATURE: Signature of this document acknowledges to followin. Understanding that you received emergency treatment and that you may be released before al medical problems are known or treated. Please be certain the ED has a correct phone number & address where you can be reached. 2. Acknowledgement that you will arrange for follow-up care as recommended. 3. Authorization for the Emergency Physician to provide information to your follow-up Physician in order to maximize your care. AT ANY TIME, IF YOUR SYMPTOMS CHANGE SIGNIFICANTLY OR WORSEN OR YOU DEVELOP NEW SYMPTOMS, RETURN TO THE EMERGENCY DEPARTMENT IMMEDIATELY FOR RE-EVALUATION. OUR GOAL IS TO PROVIDE EXCELLENT MEDICAL CARE! WE HOPE THAT WE HAVE MET YOUR EXPECTATIONS DURING YOUR EMERGENCY DEPARTMENT VISIT AND THAT YOU FEEL YOU HAVE RECEIVED EXCELLENT CARE! Prescriptions: Hydroxyzine Pamoate [Vistaril 50 mg Capsule] 50 mg PO DAILY #14 capsule
[2020-03-02 04:24] VITALS: BP 136/88
== END 2020-03-02 04:24 | disposition home or self-care (01) ==
LOC: ER 02:05
DX: G44.209 Tension-type headache, unspecified, not intractable (principal); R20.2 Paresthesia of skin; Z91.018 Allergy to other foods
CPT/HCPCS: 99283; 96372; J3410

== ENCOUNTER 2020-10-08 08:57 | Observation (INO) | payer SELFPAY ==
[2020-10-08 10:44] LABS: ABSOLUTE EOSINOPHILS # (AUTO) 0.3 10^3/uL (0.0-0.6); ABSOLUTE LYMPHOCYTES (AUTO) 3.8 10^3/uL (0.5-4.7); ABSOLUTE MONOCYTES (AUTO) 0.4 10^3/uL (0.1-1.4); ABSOLUTE NEUT (AUTO) 5.5 10^3/uL (1.7-8.2); BASOPHILS % (AUTO) 0.5 % (0-2); EOSINOPHILS % (AUTO) 2.9 % (0-6); HEMATOCRIT 38.7 % (36.0-47.0); MEAN CORPUSCULAR HEMOGLOBIN 27.9 pg (27.0-33.4); MEAN CORPUSCULAR HGB CONC 33.5 g/dL (32.0-36.0); MEAN CORPUSCULAR VOLUME 83 fl (80-97); MONOCYTES % (AUTO) 3.9 % (3-13); PLATELET COUNT 416 10^3/uL (150-450); RED BLOOD COUNT 4.64 10^6/uL (3.72-5.28); RED CELL DISTRIBUTION WIDTH 14.5 % (11.5-14.0); SEGMENTED NEUTROPHILS % (AUTO) 54.7 % (42-78); TOTAL CELLS COUNTED % (AUTO) 100 %; WHITE BLOOD COUNT 10.1 10^3/uL (4.0-10.5)
[2020-10-08 10:50] LABS: APPEARANCE,URINE SLIGHTLY-CLOUDY; BILIRUBIN,URINE NEGATIVE (NEGATIVE); COLOR,URINE YELLOW; GLUCOSE, URINE >=500 mg/dL (NEGATIVE); KETONES,URINE NEGATIVE (NEGATIVE); LEUKOCYTE ESTERASE,URINE NEGATIVE (NEGATIVE); NITRITE,URINE NEGATIVE (NEGATIVE); PROTEIN,URINE NEGATIVE (NEGATIVE); URINE SPECIFIC GRAVITY 1.026; UROBILINOGEN,URINE NEGATIVE mg/dL (<2.0)
--- NOTE | 2020-10-08 10:55 | ER Document Report ---
ED General - General Chief Complaint: Abdominal Pain Stated Complaint: SIDE PAIN Time Seen by Provider: 10/08/20 10:21 Mode of Arrival: Ambulatory Information source: Patient TRAVEL OUTSIDE OF THE [place] IN LAST 30 DAYS: No - HPI Notes: Patient presents with right lower quadrant pain since yesterday. She states she has had a previous cholecystectomy but otherwise no abdominal surgeries. She has chronic diarrhea and this has not changed. She has had some nausea but no vomiting. She has had decreased appetite. No vaginal symptoms. She states the pain is sharp moderate in intensity. Radiates to lower back. Is worse with movement better with rest. - Related Data Allergies/Adverse Reactions: No Known Drug Allergies Allergy (Verified 10/08/20 09:18) orange juice Allergy (Verified 10/08/20 09:18) RASH, ITCHING fruit juice Allergy (Uncoded 10/08/20 09:18) Home Medications: probiotic Past Medical History - General Information source: Patient - Social History Smoking Status: Never Smoker Chew tobacco use (# tins/day): No Frequency of alcohol use: None Drug Abuse: None Family History: Arthritis, CVA, DM, Hyperlipidemia, Hypertension, Malignancy, Thyroid Disfunction Patient has homicidal ideation: No - Past Medical History Cardiac Medical History: Denies: Hx Heart Attack, Hx Hypertension Pulmonary Medical History: Reports: Hx Bronchitis, Hx Pneumonia Denies: Hx Asthma, Hx COPD Neurological Medical History: Reports: Hx Migraine. Denies: Hx Seizures GI Medical History: Reports: Hx Gastroesophageal Reflux Disease Musculoskeletal Medical History: Denies Hx Arthritis Past Surgical History: Reports: Hx Cholecystectomy, Hx Gynecologic Surgery - tubal ligation, Hx Tubal Ligation - Immunizations Immunizations up to date: No Hx Diphtheria, Pertussis, Tetanus Vaccination: Yes Review of Systems - Review of Systems Constitutional: denies: Chills, Fever Cardiovascular: denies: Chest pain, Palpitations Respiratory: denies: Cough, Short of breath -: Yes All other systems reviewed and negative Physical Exam - Vital signs Vitals: Temp Pulse Resp BP Pulse Ox 99 F 92 18 154/94 H 100 10/08/20 09:14 10/08/20 09:14 10/08/20 09:14 10/08/20 09:14 10/08/20 09:14 Interpretation: Hypertensive - General General appearance: Appears well, Alert - HEENT Head: Normocephalic, Atraumatic Eyes: Normal Pupils: PERRL - Respiratory Respiratory status: No respiratory distress Chest status: Nontender Breath sounds: Normal Chest palpation: Normal - Cardiovascular Rhythm: Regular Heart sounds: Normal auscultation Murmur: No - Abdominal Inspection: Normal Distension: No distension Bowel sounds: Normal Tenderness: Tender - Patient is tender in the right lower quadrant with some voluntary guarding. Organomegaly: No organomegaly - Back Back: Normal, Nontender - Extremities General upper extremity: Normal inspection, Nontender, Normal color, Normal ROM, Normal temperature General lower extremity: Normal inspection, Nontender, Normal color, Normal ROM, Normal temperature, Normal weight bearing. No: Catherine's sign - Neurological Neuro grossly intact: Yes Cognition: Normal Orientation: AAOx4 Fabien Coma Scale Eye Opening: Spontaneous [place] Coma Scale Verbal: Oriented Fabien Coma Scale Motor: Obeys Commands [place] Coma Scale Total: 15 Speech: Normal Motor strength normal: LUE, RUE, LLE, RLE Sensory: Normal - Psychological Associated symptoms: Normal affect, Normal mood - Skin Skin Temperature: Warm Skin Moisture: Dry Skin Color: Normal Course - Re-evaluation Re-evalutation: 10/08/20 17:58 Patient presented with right lower quadrant pain. Appendix is not clearly seen on CT scan. However she remains tender in the right lower quadrant therefore I have consulted surgery. Surgery also feels that they cannot rule out appendicitis at this time. The surgeon has personally spoke with the hospitalist to admit the patient. He is also spoke with the deckhand maintenance who will evaluate the patient. - Vital Signs Vital signs: Temp Pulse Resp BP Pulse Ox 98.3 F 77 18 150/85 H 99 10/08/20 17:53 10/08/20 17:53 10/08/20 17:53 10/08/20 17:53 10/08/20 17:53 - Laboratory Results Result Diagrams: 10/08/20 10:25 10/08/20 10:25 Laboratory Results Interpreted: 10/08/20 10/08/20 10/08/20 10:25 10:25 10:25 RDW 14.5 H Sodium 135.0 L BUN 5 L Creatinine 0.49 L Glucose 284 H Lipase 21.3 L Urine Glucose (UA) >=500 H Critical Laboratory Results Reviewed: No Critical Results - Radiology Results Critical Radiology Results Reviewed: No Critical Results Discharge - Discharge Clinical Impression: Right lower quadrant pain, Right ovarian cyst Disposition: ADMITTED INPATIENT Admitting Provider: Kim (Hospitalist) Nancy rfances to admit Unit Admitted: Medical Floor
[2020-10-08 11:06] LABS: ALBUMIN 4.2 g/dL (3.5-5.0); ALKALINE PHOSPHATASE 108 U/L (38-126); ANION GAP 6 (5-19); ASPARTATE AMINO TRANSFERASE 31 U/L (14-36); BILIRUBIN,DIRECT 0.3 mg/dL (0.0-0.4); BILIRUBIN,TOTAL 0.6 mg/dL (0.2-1.3); BLOOD UREA NITROGEN 5 mg/dL (7-20); CALCIUM 9.2 mg/dL (8.4-10.2); CARBON DIOXIDE 30 mmol/L (22-30); CHLORIDE 99 mmol/L (98-107); GLUCOSE 284 mg/dL (75-110); TOTAL PROTEIN 8.2 g/dL (6.3-8.2)
[2020-10-08] MEDS ORDERED: MORPHINE SULFATE 10 MG/ML INJ IV ONE (11:15)
[2020-10-08] MEDS ORDERED: ONDANSETRON 4 MG TAB.RAPDIS PO ONE (11:15)
--- NOTE | 2020-10-08 16:00 | RADIOLOGY REPORT (SQ) ---
EXAM DESCRIPTION: CT ABD/PELVIS WITH IV ONLY IMAGES COMPLETED DATE/TIME: 10/08/2020 3:05 pm REASON FOR STUDY: pain rlq COMPARISON: 04/20/2018 TECHNIQUE: CT scan of the abdomen and pelvis performed using helical scanning technique with dynamic intravenous contrast injection. No oral contrast. Images reviewed with lung, soft tissue, and bone windows. Reconstructed coronal and sagittal MPR images reviewed. Delayed images for evaluation of the urinary system also acquired. All images stored on PACS. All CT scanners at this facility use dose modulation, iterative reconstruction, and/or weight based d osing when appropriate to reduce radiation dose to as low as reasonably achievable (ALARA). [facility]: Dose Right [facility]: CareDose [facility]: Dose Right [facility]: Teradose 4D [facility]: Underground Cellar CONTRAST TYPE AND DOSE: contrast/concentration: Isovue 350.00 mmol/ml; Total Contrast Delivered: 99. 1 ml; Total Saline Delivered: 22.0 ml RENAL FUNCTION: BUN 5 creatinine 0.5 RADIATION DOSE: CT Rad equipment meets quality standard of care and radiation dose reduction techniq ues were employed. CTDIvol: 14.7 - 14.7 mGy. DLP: 1724 mGy-cm.. LIMITATIONS: None. FINDINGS: LOWER CHEST: No significant findings. No nodules or infiltrates. LIVER: The liver is diffusely hypoattenuating. No masses. SPLEEN: Normal size. No focal lesions. PANCREAS: No masses. No significant calcifications. No adjacent inflammation or peripancreatic fluid collections. Pancreatic duct not dilated. GALLBLADDER: Surgically absent. ADRENAL GLANDS: No significant masses or asymmetry. RIGHT KIDNEY AND URETER: No solid masses. No significant calcifications. No hydronephrosis or hyd roureter. LEFT KIDNEY AND URETER: No solid masses. No significant calcifications. No hydronephrosis or hydr oureter. AORTA AND VESSELS: No aneurysm. No dissection. Renal arteries, SMA, celiac without stenosis. RETROPERITONEUM: No retroperitoneal adenopathy, hemorrhage or masses. BOWEL AND PERITONEAL CAVITY: Cannot exclude mild wall thickening in the ascending colon. No obvious bowel mass. APPENDIX: Not identified. PELVIS: 2 cm right adnexal cyst. Urinary bladder is normal. No free fluid in the pelvis. ABDOMINAL WALL: No masses. No hernias. BONES: No significant or acute findings. OTHER: No other significant finding. IMPRESSION: 1. Hepatic steatosis. 2. Cannot exclude mild wall thickening versus mere nondistention in the ascending colon. Correlate for inflammatory bowel disease. 3. 2 cm right adnexal cyst is almost certainly benign. No additional imaging is required for this. TECHNICAL DOCUMENTATION: JOB ID: [id number] Quality ID # [id number]: Final reports with documentation of one or more dose reduction techniques (e.g., Au tomated exposure control, adjustment of the mA and/or kV according to patient size, use of iterative reconstruction technique) 2010 [email or web address]- All Rights Reserved Reading location - IP/workstation name: [email or web address]
--- NOTE | 2020-10-08 17:50 | PDOC CONSULTATION ---
Consultation Consult Date: 10/08/20 Provider Consulted: DAVIE DUBON History of Present Illness Patient complains of: Right lower quadrant abdominal pain History of Present Illness: ADEEL DARBY is a 44 year old female with multiple year history of abdominal complaints, predominantly postprandial diarrhea. Patient had her gallbladder removed for right upper quadrant abdominal pain as well as postprandial diarrhea. The right upper quadrant abdominal pain subsequently resolved but the postprandial diarrhea has persisted. She has never had a colonoscopy. Patient now presents with acute onset of right lower quadrant abdominal pain that began last night and has worsened. She notes that it is worsened with laying down but not with movement. She has had diminished appetite but no emesis. She has had some chronic loose bowel movements but no blood in the stools. No fever. No recent weight loss other than about 10 pounds over the past several months she relates to work. There is no family history of colon cancer nor gastrointestinal malignancies. Past Medical History Cardiac Medical History: Denies: Myocardial Infarction, Hypertension Pulmonary Medical History: Reports: Bronchitis, Pneumonia Denies: Asthma, Chronic Obstructive Pulmonary Disease (COPD) Neurological Medical History: Reports: Migraine Denies: Seizures GI Medical History: Reports: Gastroesophageal Reflux Disease Musculoskeltal Medical History: Denies: Arthritis Hematology: Denies: Anemia Past Surgical History Past Surgical History: Reports: Cholecystectomy, Tubal Ligation Social History Smoking Status: Never Smoker Electronic Cigarette use?: No Frequency of Alcohol Use: Rare Hx Recreational Drug Use: No Hx Prescription Drug Abuse: No Family History Family History: Arthritis, CVA, DM, Hyperlipidemia, Hypertension, Malignancy, Thyroid Disfunction Parental Family History Reviewed: Yes Children Family History Reviewed: Yes Sibling(s) Family History Reviewed.: Yes Medication/Allergy Home Medications: Promethazine/Dextromethorphan [Promethazine-Dm Solution] 5 ml PO Q6HP PRN #50 ml 01/10/20 Hydroxyzine Pamoate [Vistaril 50 mg Capsule] 50 mg PO DAILY #14 capsule 03/02/20 Allergies/Adverse Reactions: No Known Drug Allergies Allergy (Verified 10/08/20 09:18) orange juice Allergy (Verified 10/08/20 09:18) RASH, ITCHING fruit juice Allergy (Uncoded 10/08/20 09:18) Review of Systems All systems: reviewed and no additional remarkable complaints except as stated Constitutional: PRESENT: as per HPI Gastrointestinal: PRESENT: as per HPI Physical Exam Vital Signs: Temp Pulse Resp BP Pulse Ox 99 F 92 18 154/94 H 100 10/08/20 09:14 10/08/20 09:14 10/08/20 09:14 10/08/20 09:14 10/08/20 09:14 Intake & Output 10/07/20 10/08/20 10/09/20 06:59 06:59 06:59 Weight 99 kg General appearance: PRESENT: no acute distress, cooperative Eye exam: PRESENT: conjunctiva pink Mouth exam: PRESENT: moist Throat exam: PRESENT: other - No erythema Neck exam: PRESENT: other - Supple with no tenderness and no masses Respiratory exam: PRESENT: clear to auscultation jeovany Cardiovascular exam: PRESENT: RRR GI/Abdominal exam: PRESENT: other - Soft, nondistended, tenderness along the right lower abdomen extending laterally to the right mid abdomen without peritoneal signs. No palpable hernia defects. Extremities exam: PRESENT: other - No swelling and no tenderness Neurological exam: PRESENT: alert, awake Psychiatric exam: PRESENT: appropriate affect Skin exam: PRESENT: warm Results Laboratory Results: 10/08/20 10:25 10/08/20 10:25 10/08/20 10/08/20 10/08/20 10:25 10:25 10:25 WBC 10.1 RBC 4.64 Hgb 13.0 Hct 38.7 MCV 83 MCH 27.9 MCHC 33.5 RDW 14.5 H Plt Count 416 Seg Neutrophils % 54.7 Sodium 135.0 L Potassium 4.0 Chloride 99 Carbon Dioxide 30 Anion Gap 6 BUN 5 L Creatinine 0.49 L Est GFR ( Amer) > 60 Glucose 284 H Calcium 9.2 Total Bilirubin 0.6 AST 31 Alkaline Phosphatase 108 Total Protein 8.2 Albumin 4.2 Lipase 21.3 L Urine Color YELLOW Urine Appearance SLIGHTLY-CLOUDY Urine pH 5.0 Ur Specific [place] 1.026 Urine Protein NEGATIVE Urine Glucose (UA) >=500 H Urine Ketones NEGATIVE Urine Blood NEGATIVE Urine Nitrite NEGATIVE Ur Leukocyte Esterase NEGATIVE Urine WBC (Auto) 3 Urine RBC (Auto) 5 Impressions: Abdomen/Pelvis CT 10/08/20 10:44 IMPRESSION: 1. Hepatic steatosis. 2. Cannot exclude mild wall thickening versus mere nondistention in the ascending colon. Correlate for inflammatory bowel disease. 3. 2 cm right adnexal cyst is almost certainly benign. No additional imaging is required for this. Assessment & Plan - Diagnosis (1) Right lower quadrant abdominal pain Is this a current diagnosis for this admission?: Yes Plan: Of unknown etiology. The appendix is not visualized and inflammatory changes are not seen that is suggestive of appendicitis. However, I cannot entirely exclude appendicitis. Patient does not have a significant leukocytosis nor fever nor peritoneal signs nor CT evidence of appendicitis and therefore I feel that an observation period is warranted. She does have possible right colon thickening and in the setting of chronic longstanding GI problems, she would benefit from a gastroenterology evaluation and a colonoscopy during this admission or as an outpatient. I believe that the most prudent treatment course would be to admit the patient, place her on n.p.o. and IV fluids with surgery following to exclude diagnosis appendicitis. I have discussed this case with the hospitalist who has agreed to admit the patient. They will consult gastroenterology. In regards to antibiotics, Levaquin and Flagyl may help the patient if she does indeed have right colon inflammatory process. Unfortunately it may cloud the diagnosis of appendicitis. Would like gastroenterology's input concerning this matter. Patient also has what appears to be an adnexal cyst on the right side and in light of her symptoms I will obtain a gynecology evaluation as well. If appendicitis appears to be unlikely, patient may start a bowel prep in 1 to 2 days for a colonoscopy on or Wednesday by gastroenterology. I have discussed with the patient the risk and benefits of observation in cases such as hers including risk that if she indeed has appendicitis it could worsen the rupture during the observation. However considering all of the above mentioned findings and lack of findings, I recommend a period of observation to the patient. And she agrees with the treatment plan. (2) Diabetes Qualifiers: Diabetes mellitus type: type 2 Is this a current diagnosis for this admission?: Yes Plan: Patient likely has undiagnosed diabetes. Defer management to hospitalist.
[2020-10-08] MEDS ORDERED: DEXTROSE 50%-WATER 25 GM/50 ML DISP.SYRIN IV PRN ×2 (17:55)
[2020-10-08] MEDS ORDERED: GLUCAGON,HUMAN RECOMB 1 MG INJ IM PRN (17:55)
[2020-10-08] MEDS ORDERED: DEXTROSE 40% GEL 15 GM TUBE PO PRN ×2 (17:55)
[2020-10-08] MEDS ORDERED: ACETAMINOPHEN 325 MG TABLET PO PRN (17:56)
[2020-10-08] MEDS ORDERED: PROMETHAZINE HCL INJ 25 MG/1 ML VIAL IV PRN (17:56)
[2020-10-08] MEDS ORDERED: ONDANSETRON HCL INJ/PF 4 MG/2 ML SDV IV PRN (17:56)
[2020-10-08] MEDS ORDERED: ALBUTEROL SULFATE 0.083% NEB 2.5 MG/3 ML AMPUL NEB PRN (17:56)
[2020-10-08] MEDS: MORPHINE SULFATE 10 MG/ML INJ IV PRN ×2 (18:15→19:10)
[2020-10-08] MEDS ORDERED: HYDRALAZINE HCL INJ/PF 20 MG/1 ML SDV IV PRN (18:17)
[2020-10-08] MEDS: INSULIN LISPRO 100 UNIT/ML 3 ML VIAL SUBCUT SCH ×2 (18:21→23:12)
--- NOTE | 2020-10-08 18:37 | PDOC H&P ---
History of Present Illness Patient complains of: RLQ abd pain, diarrhea History of Present Illness: ADEEL DARBY is a 44 year old female with a past medical history of GERD, migraines, and obesity who presented to the emergency department today with a complaint of chronic diarrhea; increased in frequency over the last few days, now associated with nausea and right lower quadrant pain. Evaluation in the emergency department revealed temperature 99 and hypertension (154/94) but otherwise stable vital signs. CBC was unremarkable. Chemistry notable for glucose 284. Lipase 21. Urinalysis spilling glucose. Abdominal pelvic CT revealed hepatic steatosis, mild wall thickening versus nondistention of the ascending colon (consistent with inflammatory bowel disease) and a 2 cm right adnexal cyst. Surgery was consulted and are recommending admission for monitoring; maintain n.p.o. status. May benefit from GI work-up. Hospitalist service was consulted for further evaluation and management of patient's newly diagnosed diabetes mellitus (glucose 284; no prior history) and hypertension. Past Medical History Cardiac Medical History: Denies: Myocardial Infarction, Hyperlipidema, Hypertension Pulmonary Medical History: Reports: Bronchitis, Pneumonia Denies: Asthma, Chronic Obstructive Pulmonary Disease (COPD) EENT Medical History: Reports: None Neurological Medical History: Reports: Migraine Denies: Ischemic CVA, Seizures Endocrine Medical History: Reports: Obesity Denies: Diabetes Mellitus Type 2, Hypothyroidism Renal/ Medical History: Reports: None Malignancy Medical History: Reports: None GI Medical History: Reports: Gastroesophageal Reflux Disease Musculoskeltal Medical History: Denies: Arthritis Psychiatric Medical History: Reports: None Hematology: Reports: None Denies: Anemia Infectious Medical History: Reports: None Past Surgical History Past Surgical History: Reports: Cholecystectomy, Tubal Ligation Social History Information Source: Patient Lives with: Spouse/Significant other Smoking Status: Never Smoker Electronic Cigarette use?: No Frequency of Alcohol Use: Rare Hx Recreational Drug Use: No Hx Prescription Drug Abuse: No - Advance Directive Resuscitation Status: Full Code Family History Family History: Arthritis, CVA, DM, Hyperlipidemia, Hypertension, Malignancy, Thyroid Disfunction Parental Family History Reviewed: Yes Children Family History Reviewed: Yes Sibling(s) Family History Reviewed.: Yes Medication/Allergy Home Medications: Promethazine/Dextromethorphan [Promethazine-Dm Solution] 5 ml PO Q6HP PRN #50 ml 01/10/20 Hydroxyzine Pamoate [Vistaril 50 mg Capsule] 50 mg PO DAILY #14 capsule 03/02/20 Allergies/Adverse Reactions: No Known Drug Allergies Allergy (Verified 10/08/20 09:18) orange juice Allergy (Verified 10/08/20 09:18) RASH, ITCHING fruit juice Allergy (Uncoded 10/08/20 09:18) Review of Systems Constitutional: PRESENT: anorexia. ABSENT: chills, fever(s), headache(s), weight gain, weight loss Eyes: ABSENT: visual disturbances Ears: ABSENT: hearing changes Cardiovascular: ABSENT: chest pain, dyspnea on exertion, edema, orthropnea, palpitations Respiratory: ABSENT: cough, hemoptysis Gastrointestinal: PRESENT: abdominal pain, diarrhea, nausea. ABSENT: constipation, hematemesis, hematochezia, vomiting Genitourinary: ABSENT: dysuria, hematuria Musculoskeletal: ABSENT: joint swelling Integumentary: ABSENT: rash, wounds Neurological: ABSENT: abnormal gait, abnormal speech, confusion, dizziness, focal weakness, syncope Psychiatric: ABSENT: anxiety, depression, homidical ideation, suicidal ideation Endocrine: ABSENT: cold intolerance, heat intolerance, polydipsia, polyuria Hematologic/Lymphatic: ABSENT: easy bleeding, easy bruising Physical Exam Vital Signs: Temp Pulse Resp BP Pulse Ox 98.3 F 77 18 150/85 H 99 10/08/20 17:53 10/08/20 17:53 10/08/20 17:53 10/08/20 17:53 10/08/20 17:53 Intake & Output 10/07/20 10/08/20 10/09/20 06:59 06:59 06:59 Weight 99 kg General appearance: PRESENT: no acute distress, cooperative, obese, well- developed, well-nourished Head exam: PRESENT: atraumatic, normocephalic Eye exam: PRESENT: conjunctiva pink, EOMI, PERRLA. ABSENT: scleral icterus Mouth exam: PRESENT: moist, tongue midline Respiratory exam: PRESENT: clear to auscultation jeovany, symmetrical, unlabored, other - room air. ABSENT: rales, rhonchi, wheezes Cardiovascular exam: PRESENT: RRR. ABSENT: diastolic murmur, rubs, systolic murmur Pulses: PRESENT: normal dorsalis pedis pul Vascular exam: PRESENT: normal capillary refill GI/Abdominal exam: PRESENT: normal bowel sounds, soft, tenderness - RLQ. ABSENT: distended, guarding, mass, organolmegaly, rebound Rectal exam: PRESENT: deferred Extremities exam: PRESENT: full ROM. ABSENT: calf tenderness, clubbing, pedal edema Musculoskeletal exam: PRESENT: ambulatory Neurological exam: PRESENT: alert, awake, oriented to person, oriented to place, oriented to time, oriented to situation, CN II-XII grossly intact. ABSENT: mot or sensory deficit Psychiatric exam: PRESENT: appropriate affect, normal mood. ABSENT: homicidal ideation, suicidal ideation Skin exam: PRESENT: dry, intact, warm. ABSENT: cyanosis, rash Results Laboratory Results: 10/08/20 10:25 10/08/20 10:25 10/08/20 10/08/20 10/08/20 10:25 10:25 10:25 WBC 10.1 RBC 4.64 Hgb 13.0 Hct 38.7 MCV 83 MCH 27.9 MCHC 33.5 RDW 14.5 H Plt Count 416 Seg Neutrophils % 54.7 Sodium 135.0 L Potassium 4.0 Chloride 99 Carbon Dioxide 30 Anion Gap 6 BUN 5 L Creatinine 0.49 L Est GFR ( Amer) > 60 Glucose 284 H Calcium 9.2 Total Bilirubin 0.6 AST 31 Alkaline Phosphatase 108 Total Protein 8.2 Albumin 4.2 Lipase 21.3 L Urine Color YELLOW Urine Appearance SLIGHTLY-CLOUDY Urine pH 5.0 Ur Specific [place] 1.026 Urine Protein NEGATIVE Urine Glucose (UA) >=500 H Urine Ketones NEGATIVE Urine Blood NEGATIVE Urine Nitrite NEGATIVE Ur Leukocyte Esterase NEGATIVE Urine WBC (Auto) 3 Urine RBC (Auto) 5 Impressions: Abdomen/Pelvis CT 10/08/20 10:44 IMPRESSION: 1. Hepatic steatosis. 2. Cannot exclude mild wall thickening versus mere nondistention in the ascending colon. Correlate for inflammatory bowel disease. 3. 2 cm right adnexal cyst is almost certainly benign. No additional imaging is required for this. Assessment and Plan - Diagnosis (1) Right lower quadrant abdominal pain Is this a current diagnosis for this admission?: Yes Plan: Primary plan per surgery. Discussed w. Dr. Jasso. Conservative management/watchful waiting as appendix was not visualized on CT and so cannot completely exclude acute appendicitis. CT imagining suggests possible inflammatory disease. Patient does report chronic diarrhea. Will rule out infectious process w/ stool wbc and stool culture. WBCs are nml, patient is afebrile. Check CRP. Will discussed with GI; once surgery has cleared her, she would benefit from further work up (?crohn's dz). Keep NPO IVF Antiemetics and analgesics as needed. (2) Diabetes Qualifiers: Diabetes mellitus type: type 2 Diabetes mellitus terminal makeup operator insulin use: without intermediate use Diabetes mellitus complication status: with hyperglycemia Qualified Code(s): E11.65 - Type 2 diabetes mellitus with hyperglycemia Is this a current diagnosis for this admission?: Yes Plan: New diagnosis. Fasting bgl 284 Spilling glucose in urine. A1C pending. Currently npo per Surgery. Accu-Cheks q6h with Humalog for sliding scale coverage. Hypoglycemia protocol in place. Registered dietitian and telehealth nurse educator consulted. (3) HTN (hypertension) Qualifiers: Hypertension type: essential hypertension Qualified Code(s): I10 - Essential (primary) hypertension Is this a current diagnosis for this admission?: Yes Plan: No prior diagnosis of hypertension. Today blood pressure is noted to be 150/85. Will provide for adequate pain control. Monitor blood pressures and likely initiate lisinopril prior to discharge. IV hydralazine as needed for blood pressure control. (4) Obesity (BMI 30-39.9) Is this a current diagnosis for this admission?: Yes Plan: BMI 39.9 A1C, Lipid panel, and TSH pending. Lifestyle and dietary modification encouraged. - Time Time Spent with patient: 35 or more minutes Medications reviewed and adjusted accordingly: Yes Anticipated Discharge Disposition: Home, Self Care Anticipated Discharge Timeframe: within 24 hours - pending surgery's recommendations
[2020-10-08] MEDS ORDERED: NORMAL SALINE 1000 ML 2,000 ML IV PRN (19:10)
--- NOTE | 2020-10-08 19:38 | PDOC CONSULTATION ---
Consultation Consult Date: 10/08/20 Provider Consulted: MODE ARAGON Consult reason:: right lower abdominal pain, incidental finding of 2.5 cm cyst on right adnexa History of Present Illness Admission Date/PCP: 10/08/20 18:17 Patient complains of: abdominal pain History of Present Illness: ADEEL DARBY is a 44 year old female here in ER for c/o lower abdom inal pain concentrated on the right. VIDEO CONTROL ENGINEER consulted due to finding of ovarian cyst on CT scan. Dr. Morse kindly ordered a transvaginal pelvic sonogram at my request. Images reviewed by me. Pt denies any history of gonorrhea, chlamydia, syphillis or herpes. She does indicate an occasional abnormal menses consistent with perimenopause over the last 6 months or so. Past Medical History Cardiac Medical History: Denies: Myocardial Infarction, Hyperlipidema, Hypertension Pulmonary Medical History: Reports: Bronchitis, Pneumonia Denies: Asthma, Chronic Obstructive Pulmonary Disease (COPD) EENT Medical History: Reports: None Neurological Medical History: Reports: Migraine Denies: Ischemic CVA, Seizures Endocrine Medical History: Reports: Obesity Denies: Diabetes Mellitus Type 2, Hypothyroidism Renal/ Medical History: Reports: None Malignancy Medical History: Reports: None GI Medical History: Reports: Gastroesophageal Reflux Disease Musculoskeltal Medical History: Denies: Arthritis Psychiatric Medical History: Reports: None Infectious Medical History: Reports: None Social History Lives with: Spouse/Significant other Smoking Status: Never Smoker Electronic Cigarette use?: No Frequency of Alcohol Use: Rare Hx Recreational Drug Use: No Drugs: None Hx Prescription Drug Abuse: No - Advance Directive Resuscitation Status: Full Code Family History Family History: Arthritis, CVA, DM, Hyperlipidemia, Hypertension, Malignancy, Thyroid Disfunction Parental Family History Reviewed: Yes Children Family History Reviewed: No Sibling(s) Family History Reviewed.: No Medication/Allergy Home Medications: L.acidoph,Paracasei, B.lactis [Probiotic] 1 cap PO DAILY 10/08/20 Allergies/Adverse Reactions: No Known Drug Allergies Allergy (Verified 10/08/20 09:18) orange juice Allergy (Verified 10/08/20 09:18) RASH, ITCHING fruit juice Allergy (Uncoded 10/08/20 09:18) Review of Systems All systems: reviewed and no additional remarkable complaints except as stated Physical Exam - Physical Exam Vital Signs: Temp Pulse Resp BP Pulse Ox 98.3 F 77 18 150/85 H 99 10/08/20 17:53 10/08/20 17:53 10/08/20 17:53 10/08/20 17:53 10/08/20 17:53 Intake & Output 10/07/20 10/08/20 10/09/20 06:59 06:59 06:59 Weight 99 kg General appearance: PRESENT: no acute distress, cooperative Neurological exam: PRESENT: alert - abdomen is soft and tender over the right Result Laboratory Results: 10/08/20 10:25 10/08/20 10:25 10/08/20 10/08/20 10/08/20 10:25 10:25 10:25 WBC 10.1 RBC 4.64 Hgb 13.0 Hct 38.7 MCV 83 MCH 27.9 MCHC 33.5 RDW 14.5 H Plt Count 416 Seg Neutrophils % 54.7 Sodium 135.0 L Potassium 4.0 Chloride 99 Carbon Dioxide 30 Anion Gap 6 BUN 5 L Creatinine 0.49 L Est GFR ( Amer) > 60 Glucose 284 H Calcium 9.2 Total Bilirubin 0.6 AST 31 Alkaline Phosphatase 108 C-Reactive Protein Total Protein 8.2 Albumin 4.2 Lipase 21.3 L Urine Color YELLOW Urine Appearance SLIGHTLY-CLOUDY Urine pH 5.0 Ur Specific [place] 1.026 Urine Protein NEGATIVE Urine Glucose (UA) >=500 H Urine Ketones NEGATIVE Urine Blood NEGATIVE Urine Nitrite NEGATIVE Ur Leukocyte Esterase NEGATIVE Urine WBC (Auto) 3 Urine RBC (Auto) 5 10/08/20 10:25 WBC RBC Hgb Hct MCV MCH MCHC RDW Plt Count Seg Neutrophils % Sodium Potassium Chloride Carbon Dioxide Anion Gap BUN Creatinine Est GFR ( Amer) Glucose Calcium Total Bilirubin AST Alkaline Phosphatase C-Reactive Protein 16.0 H Total Protein Albumin Lipase Urine Color Urine Appearance Urine pH Ur Specific [place] Urine Protein Urine Glucose (UA) Urine Ketones Urine Blood Urine Nitrite Ur Leukocyte Esterase Urine WBC (Auto) Urine RBC (Auto) Impressions: Abdomen/Pelvis CT 10/08/20 10:44 IMPRESSION: 1. Hepatic steatosis. 2. Cannot exclude mild wall thickening versus mere nondistention in the ascending colon. Correlate for inflammatory bowel disease. 3. 2 cm right adnexal cyst is almost certainly benign. No additional imaging is required for this. Assessment & Plan - Diagnosis (1) Diabetes Qualifiers: Diabetes mellitus type: type 2 Diabetes mellitus alf insulin use: without termite treater use Diabetes mellitus complication status: with hyperglycemia Qualified Code(s): E11.65 - Type 2 diabetes mellitus with hyperglycemia Is this a current diagnosis for this admission?: Yes (2) HTN (hypertension) Qualifiers: Hypertension type: essential hypertension Qualified Code(s): I10 - Essential (primary) hypertension Is this a current diagnosis for this admission?: Yes (3) Obesity (BMI 30-39.9) Is this a current diagnosis for this admission?: Yes (4) Right lower quadrant abdominal pain Is this a current diagnosis for this admission?: Yes (5) Right ovarian cyst Is this a current diagnosis for this admission?: Yes - Time Time Spent: 30 to 50 Minutes Critical Time spent with patient: Less than 15 minutes Anticipated Discharge Disposition: Home, Self Care Anticipated Discharge Timeframe: within 72 hours - Plan Summary Plan Summary: discussed with the patient that these findings on sono are normal for a reproductive aged woman who is still having menses even if they are irregular. The cyst was evaluated by sono and I reviewed the images. Cyst is consistent with a normal follicular cyst and likely periovulatory. Would recommend a follow up sono in approximately 6 weeks to ensure resolution of the cyst. If cyst enlarges or if symptoms worsen can repeat the sono sooner. i did order gc/chlam cultures to be done and will follow up those results. Otherwise, please feel free to call the VIDEO CONTROL ENGINEER service if further assessment is needed or if surgery is planned and done. Thank you for the consult on this patient.
--- NOTE | 2020-10-08 20:15 | RADIOLOGY REPORT (SQ) ---
EXAM DESCRIPTION: U/S NON-OB PELVIS TV W/O DOP RadLex: US PELVIS TRANSVAGINAL CLINICAL HISTORY: 44 years Female; rlq pain; TECHNIQUE: Endovaginal pelvic ultrasound was performed. COMPARISON: 03/28/2014. CT 10/08/2020 FINDINGS: Uterus: 10 x 4 x 4 cm, with 7 mm endometrial stripe. No uterine masses. Right ovary: 3 x 3 x 3 cm. Anechoic simple 2 x 2 by 2 cm cyst. Normal vascular flow on Doppler. Left ovary: 2 x 1 x 1 cm. Normal vascular flow on Doppler. No free fluid. No adnexal masses. IMPRESSION: 1. Normal pelvic ultrasound.
[2020-10-08] MEDS: RINGERS SOLUTION,LACTATED 1,000 ML IV PRN (20:45)
[2020-10-08] MEDS: HEPARIN SOD (PORCINE) 5,000 UNIT/ML 1 ML VIAL SUBCUT SCH (21:25)
[2020-10-08] MEDS: FAMOTIDINE INJ/PF 20 MG/2 ML SDV IV SCH (21:26)
[2020-10-08 22:49] LABS: CHLAM PCR NOT DETECTED (NOT DETECT)
[2020-10-08] MEDS: INSULIN GLARGINE,HUM.REC.ANLOG 1,000 UNIT/10 ML VIAL SUBCUT SCH (23:06)
[2020-10-09] MEDS ORDERED: METRONIDAZOLE 500 MG/NS RTU 500 MG/100 ML RTUPB IV SCH (02:00)
[2020-10-09] MEDS: LEVOFLOXACIN 500 MG/D5W RTU 500 MG/100 ML RTUPB IV SCH (05:12)
[2020-10-09] MEDS: HEPARIN SOD (PORCINE) 5,000 UNIT/ML 1 ML VIAL SUBCUT SCH ×3 (05:15→22:00)
[2020-10-09] MEDS: INSULIN LISPRO 100 UNIT/ML 3 ML VIAL SUBCUT SCH ×3 (05:59→18:37)
[2020-10-09 07:11] LABS: HEMATOCRIT 33.8 % (36.0-47.0); HEMOGLOBIN 11.4 g/dL (12.0-15.5); MEAN CORPUSCULAR HEMOGLOBIN 27.9 pg (27.0-33.4); MEAN CORPUSCULAR HGB CONC 33.7 g/dL (32.0-36.0); MEAN CORPUSCULAR VOLUME 83 fl (80-97); PLATELET COUNT 346 10^3/uL (150-450); RED BLOOD COUNT 4.09 10^6/uL (3.72-5.28); RED CELL DISTRIBUTION WIDTH 14.5 % (11.5-14.0); WHITE BLOOD COUNT 9.6 10^3/uL (4.0-10.5)
[2020-10-09 07:29] LABS: BLOOD UREA NITROGEN 4 mg/dL (7-20); CALCIUM 8.3 mg/dL (8.4-10.2); CHOLESTEROL 205.36 mg/dL (0-200); GLUCOSE 193 mg/dL (75-110); POTASSIUM 3.8 mmol/L (3.6-5.0); TRIGLYCERIDES 310 mg/dL (<150)
[2020-10-09 07:34] LABS: CARBON DIOXIDE 27 mmol/L (22-30); CHLORIDE 104 mmol/L (98-107)
[2020-10-09 07:39] LABS: DIRECT LDL 140 mg/dL (<100)
[2020-10-09 07:47] LABS: ANION GAP 6 (5-19)
[2020-10-09] MEDS: METRONIDAZOLE 500 MG/NS RTU 500 MG/100 ML RTUPB IV SCH ×3 (08:52→21:33)
--- NOTE | 2020-10-09 10:37 | PDOC PROGRESS REPORT ---
Subjective Date:: 10/09/20 Subjective:: feels better this am still with diarrhea Reason For Visit: RLQ PAIN,NEW DIAGNOSIS DM Physical Exam Vital Signs: Temp Pulse Resp BP Pulse Ox 98.2 F 72 17 135/68 H 99 10/09/20 08:05 10/09/20 07:41 10/09/20 07:41 10/09/20 07:41 10/09/20 07:41 Intake & Output 10/08/20 10/09/20 10/10/20 06:59 06:59 06:59 Intake Total 2200 Balance 2200 Weight 100 kg General appearance: PRESENT: no acute distress Head exam: PRESENT: normocephalic Eye exam: PRESENT: EOMI Ear exam: PRESENT: normal external ear exam Mouth exam: PRESENT: moist Teeth exam: PRESENT: poor dentation Neck exam: PRESENT: full ROM Respiratory exam: PRESENT: clear to auscultation jeovany Cardiovascular exam: PRESENT: RRR Pulses: PRESENT: normal radial pulses, normal femoral pulses Vascular exam: PRESENT: normal capillary refill Breast: PRESENT: Normal GI/Abdominal exam: PRESENT: ascites, soft - still sl Rectal exam: PRESENT: deferred Gentrourinary exam: PRESENT: other Extremities exam: PRESENT: full ROM Musculoskeletal exam: PRESENT: full ROM Neurological exam: PRESENT: alert, awake, oriented to person, oriented to place Psychiatric exam: PRESENT: appropriate affect Skin exam: PRESENT: dry Results Laboratory Results: 10/09/20 06:38 10/09/20 06:38 10/08/20 10/08/20 10/08/20 10:25 10:25 10:25 WBC 10.1 RBC 4.64 Hgb 13.0 Hct 38.7 MCV 83 MCH 27.9 MCHC 33.5 RDW 14.5 H Plt Count 416 Seg Neutrophils % 54.7 Sodium 135.0 L Potassium 4.0 Chloride 99 Carbon Dioxide 30 Anion Gap 6 BUN 5 L Creatinine 0.49 L Est GFR ( Amer) > 60 Glucose 284 H Calcium 9.2 Total Bilirubin 0.6 AST 31 Alkaline Phosphatase 108 C-Reactive Protein Total Protein 8.2 Albumin 4.2 Triglycerides Cholesterol LDL Cholesterol Direct VLDL Cholesterol HDL Cholesterol Lipase 21.3 L TSH Urine Color YELLOW Urine Appearance SLIGHTLY-CLOUDY Urine pH 5.0 Ur Specific [employer] 1.026 Urine Protein NEGATIVE Urine Glucose (UA) >=500 H Urine Ketones NEGATIVE Urine Blood NEGATIVE Urine Nitrite NEGATIVE Ur Leukocyte Esterase NEGATIVE Urine WBC (Auto) 3 Urine RBC (Auto) 5 Stool for White Cells 10/08/20 10/08/20 10/09/20 10:25 23:00 06:38 WBC RBC Hgb Hct MCV MCH MCHC RDW Plt Count Seg Neutrophils % Sodium Potassium Chloride Carbon Dioxide Anion Gap BUN Creatinine Est GFR ( Amer) Glucose Calcium Total Bilirubin AST Alkaline Phosphatase C-Reactive Protein 16.0 H Total Protein Albumin Triglycerides Cholesterol LDL Cholesterol Direct VLDL Cholesterol HDL Cholesterol Lipase TSH 2.50 Urine Color Urine Appearance Urine pH Ur Specific [employer] Urine Protein Urine Glucose (UA) Urine Ketones Urine Blood Urine Nitrite Ur Leukocyte Esterase Urine WBC (Auto) Urine RBC (Auto) Stool for White Cells NO WBCs SEEN 10/09/20 10/09/20 06:38 06:38 WBC 9.6 RBC 4.09 Hgb 11.4 L Hct 33.8 L MCV 83 MCH 27.9 MCHC 33.7 RDW 14.5 H Plt Count 346 Seg Neutrophils % Sodium 137.0 Potassium 3.8 Chloride 104 Carbon Dioxide 27 Anion Gap 6 BUN 4 L Creatinine 0.45 L Est GFR ( Amer) > 60 Glucose 193 H Calcium 8.3 L Total Bilirubin AST Alkaline Phosphatase C-Reactive Protein Total Protein Albumin Triglycerides 310 H Cholesterol 205.36 H LDL Cholesterol Direct 140 H VLDL Cholesterol 62.0 H HDL Cholesterol 25 L Lipase TSH Urine Color Urine Appearance Urine pH Ur Specific [employer] Urine Protein Urine Glucose (UA) Urine Ketones Urine Blood Urine Nitrite Ur Leukocyte Esterase Urine WBC (Auto) Urine RBC (Auto) Stool for White Cells Impressions: Abdomen/Pelvis CT 10/08/20 10:44 IMPRESSION: 1. Hepatic steatosis. 2. Cannot exclude mild wall thickening versus mere nondistention in the ascending colon. Correlate for inflammatory bowel disease. 3. 2 cm right adnexal cyst is almost certainly benign. No additional imaging is required for this. Transvaginal US 10/08/20 17:59 IMPRESSION: 1. Normal pelvic ultrasound. Assessment & Plan - Time Anticipated Discharge Disposition: Home, Self Care Anticipated Discharge Timeframe: unk - Plan Summary Plan Summary: pts rlq pain improved overnight still with diarrhea hungry. ct scan did not show any stranding or inflammation around the appenidix however the rt colon appears thickened on ct she has had dirrhea for last 4 mos without a colonoscopy recommend will start clears today medicine is going to consult gi for poss colo would repeat ct in am if any pain perisists
--- NOTE | 2020-10-09 11:24 | PDOC CONSULTATION ---
Consultation Consult Date: 10/09/20 Provider Consulted: PIOTR MUNGUIA Consult reason:: abnormal CT scan, possible ascending colon inflammation History of Present Illness Admission Date/PCP: 10/08/20 18:17 History of Present Illness: ADEEL DARBY is a 44 year old female asked to see the patient by Rafa admitted overnight surgery does not feel that patient has appendicitis presented with RLQ pain has abnormal CT scan suggestive of inflammation in the ascending colon patient has been having diarrhea possible colonoscopy to exclude Crohn's disease patient does not have blood in stools no family history will schedule for colonoscopy with Propofol sedation spoke with Hospitalist Past Medical History Cardiac Medical History: Denies: Myocardial Infarction, Hyperlipidema, Hypertension Pulmonary Medical History: Reports: Bronchitis, Pneumonia Denies: Asthma, Chronic Obstructive Pulmonary Disease (COPD) EENT Medical History: Reports: None Neurological Medical History: Reports: Migraine Denies: Ischemic CVA, Seizures Endocrine Medical History: Reports: Obesity Denies: Diabetes Mellitus Type 2, Hypothyroidism Renal/ Medical History: Reports: None Malignancy Medical History: Reports: None GI Medical History: Reports: Gastroesophageal Reflux Disease Musculoskeltal Medical History: Denies: Arthritis Psychiatric Medical History: Reports: None Denies: Depression Hematology: Reports: None Denies: Anemia Infectious Medical History: Reports: None Past Surgical History Past Surgical History: Reports: Cholecystectomy, Tubal Ligation Social History Lives with: Spouse/Significant other Smoking Status: Former Smoker Electronic Cigarette use?: No Last Time Smoked: 1 year ago Frequency of Alcohol Use: None Hx Recreational Drug Use: No Drugs: None Hx Prescription Drug Abuse: No - Advance Directive Resuscitation Status: Full Code Family History Family History: Arthritis, CVA, DM, Hyperlipidemia, Hypertension, Malignancy, Thyroid Disfunction Parental Family History Reviewed: Yes Children Family History Reviewed: Unknown Sibling(s) Family History Reviewed.: Unknown Medication/Allergy Home Medications: L.acidoph,Paracasei, B.lactis [Probiotic] 1 cap PO DAILY 10/08/20 Allergies/Adverse Reactions: No Known Drug Allergies Allergy (Verified 10/08/20 09:18) orange juice Allergy (Verified 10/08/20 09:18) RASH, ITCHING fruit juice Allergy (Uncoded 10/09/20 00:10) itching, rash Review of Systems Constitutional: ABSENT: fever(s), headache(s), night sweats, weakness Eyes: ABSENT: visual disturbances Ears: ABSENT: hearing changes Nose, Mouth, and Throat: ABSENT: mouth pain, sore throat Cardiovascular: ABSENT: orthropnea, palpitations Respiratory: ABSENT: dyspnea, hemoptysis Gastrointestinal: PRESENT: diarrhea. ABSENT: dysphagia Musculoskeletal: ABSENT: deformity, joint swelling Neurological: ABSENT: syncope, tingling, tremor(s), vertigo Endocrine: ABSENT: polydipsia, polyphagia, polyuria Hematologic/Lymphatic: ABSENT: easy bruising Physical Exam Vital Signs: Temp Pulse Resp BP Pulse Ox 98.2 F 72 17 135/68 H 99 10/09/20 08:05 10/09/20 07:41 10/09/20 07:41 10/09/20 07:41 10/09/20 07:41 Intake & Output 10/08/20 10/09/20 10/10/20 06:59 06:59 06:59 Intake Total 2200 Balance 2200 Weight 100 kg General appearance: PRESENT: no acute distress, well-developed, well-nourished Head exam: PRESENT: atraumatic, normocephalic Eye exam: PRESENT: EOMI, PERRLA. ABSENT: nystagmus, scleral icterus Mouth exam: PRESENT: moist, neck supple Throat exam: ABSENT: tonsillar exudate, tonsillogmegaly Neck exam: ABSENT: meningismus, tenderness, thyromegaly Cardiovascular exam: PRESENT: RRR, +S1, +S2 GI/Abdominal exam: PRESENT: normal bowel sounds, soft. ABSENT: rebound, rigid Extremities exam: ABSENT: joint swelling Musculoskeletal exam: PRESENT: full ROM Focused psych exam: ABSENT: restlessness Skin exam: PRESENT: normal color. ABSENT: mottled, pallor, urticaria, vesicles Results Laboratory Results: 10/09/20 06:38 10/09/20 06:38 10/08/20 10/08/20 10/09/20 10:25 23:00 06:38 WBC RBC Hgb Hct MCV MCH MCHC RDW Plt Count Sodium Potassium Chloride Carbon Dioxide Anion Gap BUN Creatinine Est GFR ( Amer) Glucose Calcium C-Reactive Protein 16.0 H Triglycerides Cholesterol LDL Cholesterol Direct VLDL Cholesterol HDL Cholesterol TSH 2.50 Stool for White Cells NO WBCs SEEN 10/09/20 10/09/20 06:38 06:38 WBC 9.6 RBC 4.09 Hgb 11.4 L Hct 33.8 L MCV 83 MCH 27.9 MCHC 33.7 RDW 14.5 H Plt Count 346 Sodium 137.0 Potassium 3.8 Chloride 104 Carbon Dioxide 27 Anion Gap 6 BUN 4 L Creatinine 0.45 L Est GFR ( Amer) > 60 Glucose 193 H Calcium 8.3 L C-Reactive Protein Triglycerides 310 H Cholesterol 205.36 H LDL Cholesterol Direct 140 H VLDL Cholesterol 62.0 H HDL Cholesterol 25 L TSH Stool for White Cells Impressions: Abdomen/Pelvis CT 10/08/20 10:44 IMPRESSION: 1. Hepatic steatosis. 2. Cannot exclude mild wall thickening versus mere nondistention in the ascending colon. Correlate for inflammatory bowel disease. 3. 2 cm right adnexal cyst is almost certainly benign. No additional imaging is required for this. Transvaginal US 10/08/20 17:59 IMPRESSION: 1. Normal pelvic ultrasound. Assessment & Plan - Diagnosis (1) Right lower quadrant abdominal pain Is this a current diagnosis for this admission?: Yes Plan: surgery suspects other etiology for RLQ pain and does not think due to appendicitis will need colonoscopy Risks, benefits and alternatives are discussed with the patient in detail further recommendations to follow will schedule with Propofol sedation - Time Time Spent: 50 to 70 Minutes
[2020-10-09] MEDS: FAMOTIDINE INJ/PF 20 MG/2 ML SDV IV SCH ×2 (12:43→21:31)
[2020-10-09] MEDS ORDERED: POLYETHYLENE GLYCOL 3350 238 GM POWDER PO ONE (14:00)
[2020-10-09] MEDS: BUTALB/ACETAMINOPHEN/CAFFEINE 1 TAB EACH PO PRN (14:31)
--- NOTE | 2020-10-09 18:18 | PDOC PROGRESS REPORT ---
Subjective Date:: 10/09/20 Subjective:: ADEEL DARBY is a 44 year old female with a past medical history of GERD, migraines, and obesity who was admitted for right lower quadrant abdominal pain and new diagnosis of type 2 diabetes mellitus. Patient was seen on afternoon rounds with her present. She was found resting in bed, comfortably, on room air. She states that her abdominal discomfort has resolved, however, she does continue to have frequent episodes of diarrhea. We discussed her laboratory findings of hemoglobin A1c 11.3, mixed hyperlipidemia, and vital signs showing hypertension. We had a long discussion about management of diabetes utilizing dietary changes, weight loss, and medications. I discussed with her that I wanted to speak with the school vocational educator before formalizing a diabetic regiment plan because I did feel that there was a potential that she could be discharged home on oral medications which would be the most convenient for her irregular lifestyle. However, she was strongly cautioned that these would only be effective if she made significant changes to her diet. Patient was agreeable. She has no other questions or concerns at this time. She denies fever, chills, chest pain, palpitations, orthopnea, dyspnea, cough, nausea and vomiting. No concerns per nursing. Reason For Visit: RLQ PAIN,NEW DIAGNOSIS DM Physical Exam Vital Signs: Temp Pulse Resp BP Pulse Ox 98.1 F 61 18 139/63 H 97 10/09/20 15:06 10/09/20 15:06 10/09/20 15:06 10/09/20 15:06 10/09/20 15:06 Intake & Output 10/08/20 10/09/20 10/10/20 06:59 06:59 06:59 Intake Total 2200 200 Balance 2200 200 Weight 100 kg General appearance: PRESENT: no acute distress, cooperative, morbidly obese, well-developed, well-nourished Head exam: PRESENT: atraumatic, normocephalic Eye exam: PRESENT: conjunctiva pink, EOMI, PERRLA. ABSENT: scleral icterus Mouth exam: PRESENT: moist, tongue midline Respiratory exam: PRESENT: clear to auscultation jeovany, symmetrical, unlabored. ABSENT: rales, rhonchi, wheezes Cardiovascular exam: PRESENT: RRR. ABSENT: diastolic murmur, rubs, systolic murmur Pulses: PRESENT: normal dorsalis pedis pul Vascular exam: PRESENT: normal capillary refill GI/Abdominal exam: PRESENT: normal bowel sounds, soft. ABSENT: distended, guarding, mass, organolmegaly, rebound, tenderness Rectal exam: PRESENT: deferred Extremities exam: PRESENT: full ROM. ABSENT: calf tenderness, clubbing, pedal edema Musculoskeletal exam: PRESENT: ambulatory Neurological exam: PRESENT: alert, awake, oriented to person, oriented to place, oriented to time, oriented to situation, CN II-XII grossly intact. ABSENT: motor sensory deficit Psychiatric exam: PRESENT: appropriate affect, normal mood. ABSENT: homicidal ideation, suicidal ideation Skin exam: PRESENT: dry, intact, warm. ABSENT: cyanosis, rash Results Laboratory Results: 10/09/20 06:38 10/09/20 06:38 10/08/20 10/08/20 10/09/20 10:25 23:00 06:38 WBC RBC Hgb Hct MCV MCH MCHC RDW Plt Count Sodium Potassium Chloride Carbon Dioxide Anion Gap BUN Creatinine Est GFR ( Amer) Glucose Calcium C-Reactive Protein 16.0 H Triglycerides Cholesterol LDL Cholesterol Direct VLDL Cholesterol HDL Cholesterol TSH 2.50 Stool for White Cells NO WBCs SEEN 10/09/20 10/09/20 06:38 06:38 WBC 9.6 RBC 4.09 Hgb 11.4 L Hct 33.8 L MCV 83 MCH 27.9 MCHC 33.7 RDW 14.5 H Plt Count 346 Sodium 137.0 Potassium 3.8 Chloride 104 Carbon Dioxide 27 Anion Gap 6 BUN 4 L Creatinine 0.45 L Est GFR ( Amer) > 60 Glucose 193 H Calcium 8.3 L C-Reactive Protein Triglycerides 310 H Cholesterol 205.36 H LDL Cholesterol Direct 140 H VLDL Cholesterol 62.0 H HDL Cholesterol 25 L TSH Stool for White Cells Impressions: Abdomen/Pelvis CT 10/08/20 10:44 IMPRESSION: 1. Hepatic steatosis. 2. Cannot exclude mild wall thickening versus mere nondistention in the ascending colon. Correlate for inflammatory bowel disease. 3. 2 cm right adnexal cyst is almost certainly benign. No additional imaging is required for this. Transvaginal US 10/08/20 17:59 IMPRESSION: 1. Normal pelvic ultrasound. Assessment and Plan - Diagnosis (1) Right lower quadrant abdominal pain Is this a current diagnosis for this admission?: Yes Plan: Pain has resolved. Does continue to have diarrhea. CT abdomen revealed ascending colon inflammation. Pelvic ultrasound showed a 2 cm adnexal cyst. ESR 46, CRP 16. WBC is normal, afebrile. Stool culture pending; low suspicion for infectious process as the family member indicates that her diarrheal symptoms have been ongoing for several months to year. Surgery was consulted; low suspicion for acute abdomen/acute appendicitis at this time. Recommend GI follow-up. OBGYN was consulted; benign cyst noted on ultrasound. May follow-up in 6 weeks for repeat imaging. Will likely resolve on its own. GI consulted; discussed with Dr. Lorenzo. We will bowel prep tonight and plan for colonoscopy tomorrow. MiraLAX bowel prep. N.p.o. after midnight. IVF Antiemetics and analgesics as needed. (2) Diabetes Qualifiers: Diabetes mellitus type: type 2 Diabetes mellitus skilled nursing insulin use: without wood heel flap rubber use Diabetes mellitus complication status: with hyperglycemia Qualified Code(s): E11.65 - Type 2 diabetes mellitus with hyperglycemia Is this a current diagnosis for this admission?: Yes Plan: New diagnosis. Fasting bgl 284 Spilling glucose in urine. A1C 11.3% Currently npo; plan for colonoscopy tomorrow. Accu-Cheks q6h with Humalog for sliding scale coverage. Hypoglycemia protocol in place. Registered dietitian and school vocational educator consulted. Discussed at length with the patient and spouse, as well as with the school vocational educator. The patient has health insurance beginning October 25. 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 We will discuss with patient and family again the importance of dietary compliance and very close PCP follow up should we utilize Metformin and glipizide. These will be easier for her to manage with her irregular work/sleep schedule, and therefore irregular dietary habits, but will also be more cost e ffective for self pay patient. (3) HTN (hypertension) Qualifiers: Hypertension type: essential hypertension Qualified Code(s): I10 - Essential (primary) hypertension Is this a current diagnosis for this admission?: Yes Plan: No prior diagnosis of hypertension. Improved blood pressures today. Will provide for adequate pain control. Monitor blood pressures and likely initiate lisinopril prior to discharge. IV hydralazine as needed for blood pressure control. (4) Obesity (BMI 30-39.9) Is this a current diagnosis for this admission?: Yes Plan: BMI 39.9 Lifestyle and dietary modification encouraged. (5) Mixed hyperlipidemia Is this a current diagnosis for this admission?: Yes Plan: Registered dietitian and school vocational educator consulted. Encourage lifestyle modification and dietary compliance. Start atorvastatin. - Time Time Spent with patient: 35 or more minutes Medications reviewed and adjusted accordingly: Yes Anticipated Discharge Disposition: Home, Self Care Anticipated Discharge Timeframe: within 48 hours
[2020-10-09] MEDS: RINGERS SOLUTION,LACTATED 1,000 ML IV PRN (21:31)
[2020-10-09] MEDS ORDERED: ATORVASTATIN CALCIUM 20 MG TABLET PO SCH (22:00)
[2020-10-09] MEDS: INSULIN GLARGINE,HUM.REC.ANLOG 1,000 UNIT/10 ML VIAL SUBCUT SCH (22:52)
[2020-10-10] MEDS: INSULIN LISPRO 100 UNIT/ML 3 ML VIAL SUBCUT SCH ×3 (00:30→15:24)
[2020-10-10] MEDS: METRONIDAZOLE 500 MG/NS RTU 500 MG/100 ML RTUPB IV SCH ×2 (03:02→09:56)
[2020-10-10] MEDS: HEPARIN SOD (PORCINE) 5,000 UNIT/ML 1 ML VIAL SUBCUT SCH ×2 (06:47→16:22)
[2020-10-10] MEDS: LEVOFLOXACIN 500 MG/D5W RTU 500 MG/100 ML RTUPB IV SCH (06:49)
[2020-10-10 07:38] LABS: HEPATITS B SURFACE ANTIGEN Negative (Negative)
[2020-10-10 07:39] LABS: HEPATITIS C VIRUS ANTIBODY <0.1 s/co ratio (0.0-0.9)
--- NOTE | 2020-10-10 09:12 | PDOC PROGRESS REPORT ---
Subjective Date:: 10/10/20 Subjective:: Feels much better patient has only mild the right lower quadrant abdominal disco mfort but much improved from her admission. Tolerated a bowel prep well yesterday for a colonoscopy later today. Reason For Visit: RLQ PAIN,NEW DIAGNOSIS DM Physical Exam Vital Signs: Temp Pulse Resp BP Pulse Ox 98.4 F 66 16 144/74 H 97 10/10/20 07:18 10/10/20 07:18 10/10/20 07:18 10/10/20 07:18 10/10/20 07:18 Intake & Output 10/09/20 10/10/20 10/11/20 06:59 06:59 06:59 Intake Total 3200 400 Balance 3200 400 Weight 100 kg 99.4 kg General appearance: PRESENT: no acute distress, cooperative Respiratory exam: PRESENT: clear to auscultation jeovany Cardiovascular exam: PRESENT: RRR GI/Abdominal exam: PRESENT: other - Soft, nondistended, very mild the right lower quadrant abdominal tenderness but no peritoneal signs. The exam is markedly improved from her admission exam. Results Laboratory Results: 10/09/20 06:38 10/09/20 06:38 10/08/20 23:00 Stool - Stool - Final Impressions: Abdomen/Pelvis CT 10/08/20 10:44 IMPRESSION: 1. Hepatic steatosis. 2. Cannot exclude mild wall thickening versus mere nondistention in the ascending colon. Correlate for inflammatory bowel disease. 3. 2 cm right adnexal cyst is almost certainly benign. No additional imaging is required for this. Transvaginal US 10/08/20 17:59 IMPRESSION: 1. Normal pelvic ultrasound. Assessment & Plan - Diagnosis (1) Right lower quadrant abdominal pain Is this a current diagnosis for this admission?: Yes Plan: Markedly improved in the last couple of days. CT scan concerning for right colon pathology and I think it would be appropriate to proceed with her colonoscopy today. With the marked improvement of her symptoms and exam, unlikely to be appendicitis, especially with the admission CT scan findings. (2) Diabetes Qualifiers: Diabetes mellitus type: type 2 Diabetes mellitus care home insulin use: without care home use Diabetes mellitus complication status: with hyperglycemia Qualified Code(s): E11.65 - Type 2 diabetes mellitus with hyperglycemia Is this a current diagnosis for this admission?: Yes - Time Anticipated Discharge Disposition: Home, Self Care Anticipated Discharge Timeframe: within 48 hours
[2020-10-10] MEDS: FAMOTIDINE INJ/PF 20 MG/2 ML SDV IV SCH (09:56)
[2020-10-10] MEDS: BUTALB/ACETAMINOPHEN/CAFFEINE 1 TAB EACH PO PRN (10:08)
[2020-10-10] MEDS: RINGERS SOLUTION,LACTATED 1,000 ML IV PRN (10:13)
[2020-10-10] MEDS ORDERED: PROPOFOL INJ 200 MG/20 ML VIAL IV ONE (13:29)
--- NOTE | 2020-10-10 14:05 | Operative Report ---
Operative Report DATE OF SURGERY: 10/10/20 Operative Report: The risk, benefits and alternatives of the procedure including the risk of bleeding, perforation requiring surgery have been explained to the patient in detail and informed consent has been obtained. Patient is placed in the left, lateral decubital position. Timeout was called. Propofol medication is administered. Rectal examination is done which did not reveal any masses, tears or fissures. An Olympus videoscope was introduced into the patient's rectum. The scope was then carefully advanced all the way to the cecum. The cecum was identified by the usual anatomical landmarks including the ileocecal valve as well as the appendiceal office. Photodocumentation is obtained. Scope then sequentially pulled back via the various segments of the colon including the ascending colon, hepatic flexure, transverse colon, splenic flexure, descending colon and finally into the rectosigmoid portions of the colon. Retroflexion maneuver is performed. PREOPERATIVE DIAGNOSIS: Rule out Crohn's disease POSTOPERATIVE DIAGNOSIS: Normal cecum. Random biopsies taken in the ascending colon. Normal-appearing terminal ileum. Internal hemorrhoids OPERATION: Colonoscopy with biopsy SURGEON: PIOTR MUNGUIA ANESTHESIA: LMAC TISSUE REMOVED OR ALTERED: As noted above. COMPLICATIONS: None. ESTIMATED BLOOD LOSS: None. INTRAOPERATIVE FINDINGS: As noted above. PROCEDURE: Patient tolerated the procedure well. No immediate postprocedure complications are noted. Patient is sent to recovery in good condition. Resume previous diet. Resume previous activity level. Wait on biopsies. Follow-up as outpatient. Does not appear to be consistent with inflammatory bowel disease.
--- NOTE | 2020-10-10 17:28 | PDOC DISCHARGE SUMMARY ---
Impression - Admit/DC Date/PCP Admission Date/Primary Care Provider: 10/08/20 18:17 Discharge Date: 10/10/20 - Discharge Diagnosis (1) Right lower quadrant abdominal pain Is this a current diagnosis for this admission?: Yes (2) Diabetes Is this a current diagnosis for this admission?: Yes (3) HTN (hypertension) Is this a current diagnosis for this admission?: Yes (4) Obesity (BMI 30-39.9) Is this a current diagnosis for this admission?: Yes (5) Mixed hyperlipidemia Is this a current diagnosis for this admission?: Yes - Additional Information Resuscitation Status: Full Code Discharge Diet: Diabetic Discharge Activity: Activity As Tolerated, Balance Activity w/Rest, Slowly Increase Activity Referrals: MODE ARAGON MD [ACTIVE STAFF] - (Follow up as needed.) [facility] [NO LOCAL MD] - PIOTR GRIFFIN MD [ACTIVE STAFF] - (Follow up in 3 weeks (please schedule f/u appointment in October).) Prescriptions: Glipizide [Glipizide Xl] 5 mg PO ACSUPPER #30 tab.er.24 Metformin HCl [Glucophage 850 mg Tablet] 850 mg PO BIDACBS #60 tab Atorvastatin Calcium [Lipitor 20 mg Tablet] 20 mg PO QHS #30 tablet Lisinopril [Prinivil 10 mg Tablet] 10 mg PO DAILY #30 tablet Home Medications: L.acidoph,Paracasei, B.lactis [Probiotic] 1 cap PO DAILY 10/08/20 Acetaminophen [Tylenol 325 mg Tablet] 650 mg PO Q4HP PRN tablet 10/10/20 Atorvastatin Calcium [Lipitor 20 mg Tablet] 20 mg PO QHS #30 tablet 10/10/20 Glipizide [Glipizide Xl] 5 mg PO ACSUPPER #30 tab.er.24 10/10/20 Lisinopril [Prinivil 10 mg Tablet] 10 mg PO DAILY #30 tablet 10/10/20 Metformin HCl [Glucophage 850 mg Tablet] 850 mg PO BIDACBS #60 tab 10/10/20 History of Present Illiness History of Present Illness: ADEEL DARBY is a 44 year old female with a past medical history of GERD, migraines, and obesity who presented to the emergency department today with a complaint of chronic diarrhea; increased in frequency over the last few days, now associated with nausea and right lower quadrant pain. Evaluation in the emergency department revealed temperature 99 and hypertension (154/94) but otherwise stable vital signs. CBC was unremarkable. Chemistry notable for glucose 284. Lipase 21. Urinalysis spilling glucose. Abdominal pelvic CT revealed hepatic steatosis, mild wall thickening versus nondistention of the ascending colon (consistent with inflammatory bowel disease) and a 2 cm right adnexal cyst. Surgery was consulted and are recommending admission for monitoring; maintain n.p.o. status. May benefit from GI work-up. Hospitalist service was consulted for further evaluation and management of patient's newly diagnosed diabetes mellitus (glucose 284; no prior history) and hypertension. Hospital Course Hospital Course: (1) Right lower quadrant abdominal pain Pain has resolved. Does continue to have diarrhea (chronic) CT abdomen revealed ascending colon inflammation. Pelvic ultrasound showed a 2 cm adnexal cyst. ESR 46, CRP 16. WBC is normal, afebrile. Stool culture is negative. Surgery was consulted; no suspicion for acute abdomen/acute appendicitis at this time. OBGYN was consulted; benign cyst noted on ultrasound. May follow-up in 6 weeks for repeat imaging. Will likely resolve on its own. GI consulted; colonoscopy today was negative for signs of inflammatory disease. Biopsies obtained; follow up as outpatient in 2-3 weeks to review results. (2) Diabetes New diagnosis. Fasting bgl 284 Spilling glucose in urine. A1C 11.3% Patient was managed with Accu-Cheks q6h with Humalog for sliding scale coverage. Registered dietitian and ems educator consulted. Discussed at length with the patient and spouse, the importance of dedication to dietary change. Discharged on metformin twice daily and glipizide with largest meal of the day. (3) HTN (hypertension) No prior diagnosis of hypertension. Improved blood pressures today. Discharged on low-dose lisinopril. Lifestyle and dietary modifications are encouraged. Weight loss encouraged. (4) Obesity (BMI 30-39.9) BMI 39.9 Lifestyle and dietary modification encouraged. (5) Mixed hyperlipidemia Registered dietitian and ems educator consulted. Encourage lifestyle modification and dietary compliance. Start atorvastatin. Physical Exam Vital Signs: Temp Pulse Resp BP Pulse Ox 97.7 F 66 16 153/80 H 100 10/10/20 16:44 10/10/20 16:44 10/10/20 16:44 10/10/20 16:44 10/10/20 16:44 Intake & Output 10/09/20 10/10/20 10/11/20 06:59 06:59 06:59 Intake Total 3200 400 1300 Balance 3200 400 1300 Weight 100 kg 99.4 kg 99.4 kg General appearance: PRESENT: no acute distress, cooperative, morbidly obese, well-developed, well-nourished Head exam: PRESENT: atraumatic, normocephalic Eye exam: PRESENT: conjunctiva pink, EOMI, PERRLA. ABSENT: scleral icterus Mouth exam: PRESENT: moist, tongue midline Respiratory exam: PRESENT: clear to auscultation jeovany, symmetrical, unlabored, other - Room air. ABSENT: rales, rhonchi, wheezes Cardiovascular exam: PRESENT: RRR. ABSENT: diastolic murmur, rubs, systolic murmur Pulses: PRESENT: normal dorsalis pedis pul Vascular exam: PRESENT: normal capillary refill GI/Abdominal exam: PRESENT: normal bowel sounds, soft. ABSENT: distended, guarding, mass, organolmegaly, rebound, tenderness Rectal exam: PRESENT: deferred Extremities exam: PRESENT: full ROM. ABSENT: calf tenderness, clubbing, pedal edema Musculoskeletal exam: PRESENT: ambulatory Neurological exam: PRESENT: alert, awake, oriented to person, oriented to place, oriented to time, oriented to situation, CN II-XII grossly intact. ABSENT: motor sensory deficit Psychiatric exam: PRESENT: appropriate affect, normal mood. ABSENT: homicidal ideation, suicidal ideation Skin exam: PRESENT: dry, intact, warm. ABSENT: cyanosis, rash Results Laboratory Results: WBC 9.6 10^3/uL (4.0-10.5) 10/09/20 06:38 RBC 4.09 10^6/uL (3.72-5.28) 10/09/20 06:38 Hgb 11.4 g/dL (12.0-15.5) L 10/09/20 06:38 Hct 33.8 % (36.0-47.0) L 10/09/20 06:38 MCV 83 fl (80-97) 10/09/20 06:38 MCH 27.9 pg (27.0-33.4) 10/09/20 06:38 MCHC 33.7 g/dL (32.0-36.0) 10/09/20 06:38 RDW 14.5 % (11.5-14.0) H 10/09/20 06:38 Plt Count 346 10^3/uL (150-450) 10/09/20 06:38 Lymph % (Auto) 38.0 % (13-45) 10/08/20 10:25 [place] % (Auto) 3.9 % (3-13) 10/08/20 10:25 Eos % (Auto) 2.9 % (0-6) 10/08/20 10:25 Baso % (Auto) 0.5 % (0-2) 10/08/20 10:25 Absolute Neuts (auto) 5.5 10^3/uL (1.7-8.2) 10/08/20 10:25 Absolute Lymphs (auto) 3.8 10^3/uL (0.5-4.7) 10/08/20 10:25 Absolute Monos (auto) 0.4 10^3/uL (0.1-1.4) 10/08/20 10:25 Absolute Eos (auto) 0.3 10^3/uL (0.0-0.6) 10/08/20 10:25 Absolute Basos (auto) 0.0 10^3/uL (0.0-0.2) 10/08/20 10:25 Seg Neutrophils % 54.7 % (42-78) 10/08/20 10:25 ESR 46 mm/hr (0-20) H 10/08/20 21:13 Sodium 137.0 mmol/L (137-145) 10/09/20 06:38 Potassium 3.8 mmol/L (3.6-5.0) 10/09/20 06:38 Chloride 104 mmol/L (98-107) 10/09/20 06:38 Carbon Dioxide 27 mmol/L (22-30) 10/09/20 06:38 Anion Gap 6 (5-19) 10/09/20 06:38 BUN 4 mg/dL (7-20) L 10/09/20 06:38 Creatinine 0.45 mg/dL (0.52-1.25) L 10/09/20 06:38 Est GFR ( Amer) > 60 (>60) 10/09/20 06:38 Est GFR (MDRD) Non-Af > 60 (>60) 10/09/20 06:38 Glucose 193 mg/dL (75-110) H 10/09/20 06:38 POC Glucose 129 mg/dL (70-110) H 10/10/20 16:16 Hemoglobin A1c % 11.3 % (4.7-6.0) H 10/08/20 10:25 Calcium 8.3 mg/dL (8.4-10.2) L 10/09/20 06:38 Total Bilirubin 0.6 mg/dL (0.2-1.3) 10/08/20 10:25 Direct Bilirubin 0.3 mg/dL (0.0-0.4) 10/08/20 10:25 Neonat Total Bilirubin Not Reportable 10/08/20 10:25 Neonat Direct Bilirubin Not Reportable 10/08/20 10:25 Neonat Indirect Bili Not Reportable 10/08/20 10:25 AST 31 U/L (14-36) 10/08/20 10:25 ALT 14 U/L (<35) 10/08/20 10:25 Alkaline Phosphatase 108 U/L (38-126) 10/08/20 10:25 C-Reactive Protein 16.0 mg/L (<10.0) H 10/08/20 10:25 Total Protein 8.2 g/dL (6.3-8.2) 10/08/20 10:25 Albumin 4.2 g/dL (3.5-5.0) 10/08/20 10:25 Triglycerides 310 mg/dL (<150) H 10/09/20 06:38 Cholesterol 205.36 mg/dL (0-200) H 10/09/20 06:38 LDL Cholesterol Direct 140 mg/dL (<100) H 10/09/20 06:38 VLDL Cholesterol 62.0 mg/dL (10-31) H 10/09/20 06:38 HDL Cholesterol 25 mg/dL (>40) L 10/09/20 06:38 Lipase 21.3 U/L (23-300) L 10/08/20 10:25 TSH 2.50 uIU/mL (0.47-4.68) 10/09/20 06:38 Urine Color YELLOW 10/08/20 10:25 Urine Appearance SLIGHTLY-CLOUDY 10/08/20 10:25 Urine pH 5.0 (5.0-9.0) 10/08/20 10:25 Ur Specific Leland 1.026 10/08/20 10:25 Urine Protein NEGATIVE mg/dL (NEGATIVE) 10/08/20 10:25 Urine Glucose (UA) >=500 mg/dL (NEGATIVE) H 10/08/20 10:25 Urine Ketones NEGATIVE mg/dL (NEGATIVE) 10/08/20 10:25 Urine Blood NEGATIVE (NEGATIVE) 10/08/20 10:25 Urine Nitrite NEGATIVE (NEGATIVE) 10/08/20 10:25 Urine Bilirubin NEGATIVE (NEGATIVE) 10/08/20 10:25 Urine Urobilinogen NEGATIVE mg/dL (<2.0) 10/08/20 10:25 Ur Leukocyte Esterase NEGATIVE (NEGATIVE) 10/08/20 10:25 Urine WBC (Auto) 3 /HPF 10/08/20 10:25 Urine RBC (Auto) 5 /HPF 10/08/20 10:25 Urine Bacteria (Auto) TRACE /HPF 10/08/20 10:25 Squamous Epi Cells Auto 7 /HPF 10/08/20 10:25 Urine Mucus (Auto) RARE /LPF 10/08/20 10:25 Urine Ascorbic Acid NEGATIVE (NEGATIVE) 10/08/20 10:25 Urine HCG, Qual NEGATIVE (NEGATIVE) 10/08/20 10:25 Stool for White Cells NO WBCs SEEN 10/08/20 23:00 Chlamydia DNA (PCR) NOT DETECTED (NOT DETECT) 10/08/20 20:35 Hepatitis A IgM Ab Negative (Negative) 10/09/20 06:38 Hep Bs Antigen Negative (Negative) 10/09/20 06:38 Hep B Core IgM Ab Negative (Negative) 10/09/20 06:38 Hepatitis C Antibody <0.1 s/co ratio (0.0-0.9) 10/09/20 06:38 Influenza A (RT-PCR) NEGATIVE (NEGATIVE) 10/09/20 15:04 Influenza B (RT-PCR) NEGATIVE (NEGATIVE) 10/09/20 15:04 N.gonorrhoeae DNA (PCR) NOT DETECTED (NOT DETECT) 10/08/20 20:35 RSV (RT-PCR) NEGATIVE (NEGATIVE) 10/09/20 15:04 SARS-CoV-2 Rap RNA(RT-PCR) NEGATIVE (NEGATIVE) 10/09/20 15:04 Impressions: Abdomen/Pelvis CT 10/08/20 10:44 IMPRESSION: 1. Hepatic steatosis. 2. Cannot exclude mild wall thickening versus mere nondistention in the ascending colon. Correlate for inflammatory bowel disease. 3. 2 cm right adnexal cyst is almost certainly benign. No additional imaging is required for this. Transvaginal US 10/08/20 17:59 IMPRESSION: 1. Normal pelvic ultrasound. Plan Plan of Treatment: Establish with a primary care provider and follow-up at the earliest available appointment. Follow-up with Dr. Griffin as scheduled. Follow-up with Dr. Aragon as needed. Continue to eat a consistent carb diet. Drink plenty of water. Take medications as prescribed. Return to the emergency department, as needed, for concerning symptoms. Time Spent: Greater than 30 Minutes Stroke Is this a Stroke Patient?: No Acute Heart Failure Is this a Heart Failure Patient?: No
[2020-10-10 17:38] VITALS: BP 149/71
== END 2020-10-10 18:05 | disposition home or self-care (01) ==
LOC: ER 08:57 → EH 18:17 → INTOOBSV 18:17 → 2N 19:39
PROVIDERS: ADMIT Internal Medicine; ATTEND Registered Nurse
DX: R10.31 Right lower quadrant pain (principal); E11.65 Type 2 diabetes mellitus with hyperglycemia; I10 Essential (primary) hypertension; E66.9 Obesity, unspecified; E78.2 Mixed hyperlipidemia; N83.201 Unspecified ovarian cyst, right side; K21.9 Gastro-esophageal reflux disease without esophagitis; R11.0 Nausea; K76.0 Fatty (change of) liver, not elsewhere classified; R63.0 Anorexia; K64.8 Other hemorrhoids; K52.9 Noninfective gastroenteritis and colitis, unspecified; Z79.899 Other long term (current) drug therapy; Z79.84 Long term (current) use of oral hypoglycemic drugs; Z68.39 Body mass index [BMI] 39.0-39.9, adult; Z20.828 Contact with and (suspected) exposure to other viral communicable diseases
CPT/HCPCS: 99285; 96374; 96375; 45380; 36415 ×2; 87045; 89055; 87205; 82962 ×3; 83690; 84443; 85025; 85027; 85652; 0241U ×4; 81025; 86140; 80048; 80053; 81001; 83036; 87491; 87591; 80061; 80074; 88305 ×2; 76830; 74177; 00811; G0378 ×4; J3490 ×5; J1956 ×2; S0119; J1815 ×3; J2270; J2550; J2405; J7030; J7120 ×3; J2704; S0028 ×3; C9803; 811